=== PATIENT | male | born 2000 | race Caucasian/White ===

== ENCOUNTER 2024-09-02 15:18 | Emergency (ER) | payer MEDICAID, SELFPAY ==
[2024-09-02 16:02] VITALS: BP 144/88; PULSE 105; RESP 16; TEMP 37.5; O2SAT 98; BMI 38.4
--- NOTE | 2024-09-02 16:04 | ECG_ITS ---
Test Reason : CHEST PAIN Blood Pressure : / mmHG Vent. Rate : 098 BPM Atrial Rate : 098 BPM P-R Int : 146 ms QRS Dur : 098 ms QT Int : 336 ms P-R-T Axes : 022 016 016 degrees QTc Int : 428 ms Normal sinus rhythm Nonspecific T wave abnormality Abnormal ECG No previous ECGs available Referred By: Destiny Thomas Electronically Signed By:Raúl Holt
--- NOTE | 2024-09-02 16:06 | ED_ITS ---
HPI - Chest Pain General Chief Complaint: Chest Pain Stated Complaint: Chest pain/High blood pressure/Tachycardic Related Data Allergies Allergy/AdvReac Type Severity Reaction Status Date / Time No Known Allergies Allergy Verified 09/02/24 16:04 [facility] Social History Social History Advance Directives: No Advance Directives Information Provided: No Do you have a plan to hurt others: No Plan Physical Exam 2 Vital Signs: Vital Signs: Last Vital Signs Temp 99.5 F 09/02/24 16:02 Pulse 105 H 09/02/24 16:02 Resp 16 09/02/24 16:02 BP 144/88 H 09/02/24 16:02 Pulse Ox 98 09/02/24 16:02 O2 Del Method Room Air 09/02/24 16:02 BMI result Body Mass Index 38.4 Course Course Course Narrative: This is a rapid medical exam performed by Destiny Thomas PA-C. The patient is a 23-year-old male, with prior history of polysubstance abuse, alcohol abuse who presents from respite with chest pain. We will be screening basic labs troponin EKG and chest x-ray. The patient is hemodynamically stable, he is able to return to the waiting room pending his full medical assessment. Medical Decision Making Lab Data 09/02/24 16:32 09/02/24 16:32 Labs: Lab Results 09/02/24 Range/Units 16:32 WBC 10.1 (4.8-10.8) X10*3/uL RBC 5.58 (4.60-5.80) X10*6/uL Hgb 14.0 (14.0-18.0) g/dl Hct 44.4 (42.0-52.0) % MCV 79.6 L (80.0-98.0) fL MCH 25.1 L (27.0-33.0) pg MCHC 31.5 (31.0-36.0) g/dl RDW 13.2 (11.0-16.0) % Plt Count 360 (160-400) X10*3/uL MPV 8.3 L (9.4-12.4) fL Immature Gran % (Auto) 0.3 (0.0-0.4) % Neut % (Auto) 60.8 (45-73) % Lymph % (Auto) 27.7 (20-40) % [place] % (Auto) 8.4 (2-11) % Eos % (Auto) 2.5 (0-4) % Baso % (Auto) 0.3 (0-2) % Lymph # (Auto) 2.8 (1.2-4.9) X10*3/uL [place] # (Auto) 0.9 (0.1-1.2) X10*3/uL Eos # (Auto) 0.3 (0.0-0.4) X10*3/uL Baso # (Auto) 0.0 (0.0-0.2) X10*3/uL Abs Immat Gran (auto) 0.03 (0.00-0.03) X10*3/uL Absolute Neuts (auto) 6.2 (2.0-8.3) x10*3/uL Absolute Nucleated RBC 0.000 (0.0-0.012) X10*3/uL Nucleated RBC % (auto) 0.0 (0.0-0.2) /100WBC Sodium 139 (135-145) mmol/L Potassium 3.9 (3.3-5.1) mmol/L Chloride 108 (96-108) mmol/L Carbon Dioxide 24 (22-29) mmol/L Anion Gap 11 L (12-20) BUN 11 (9-16) mg/dL Creatinine 0.72 (0.5-1.4) mg/dL Estim Creat Clear Calc 203.9 Estimated GFR > 60 Random Glucose 131 H (60-115) mg/dL Calcium 9.3 (8.4-10.2) mg/dL Magnesium 2.2 (1.6-2.6) mg/dL Total Bilirubin 0.2 (0.0-1.0) mg/dL AST 27 (5-37) U/L ALT 67 H (0-40) U/L Alkaline Phosphatase 125 H (39-117) U/L Troponin I High Sens < 2.7 (<3.5-35.0) ng/L Total Protein 7.0 (6.5-8.0) g/dL Albumin 4.1 (3.5-5.0) g/dL Influenza Type A (PCR) NEGATIVE (Negative) Influenza Type B (PCR) NEGATIVE (Negative) RSV RNA Qual (PCR) NEGATIVE (Negative) SARS-CoV-2 RNA (RT-PCR) NEGATIVE (Negative) Discharge Plan Discharge Clinical Impression: Chest pain Patient Disposition: Left W/O Completing Treatment Discharge Date/Time: 09/02/24 19:46
[2024-09-02 16:36] LABS: MANUAL DIFF FLAG NO
[2024-09-02 16:42] LABS: Basophils Percent Auto 0.3 % (0-2); Eosinophils Absolute Auto 0.3 X10*3/uL (0.0-0.4); Eosinophils Percent Auto 2.5 % (0-4); Hematocrit 44.4 % (42.0-52.0); Imm Gran Abs Auto 0.03 X10*3/uL (0.00-0.03); Imm Gran Pct Auto 0.3 % (0.0-0.4); Lymphocytes Absolute Auto 2.8 X10*3/uL (1.2-4.9); Lymphocytes Percent Auto 27.7 % (20-40); Mean Corpuscular HGB Conc 31.5 g/dl (31.0-36.0); Mean Corpuscular Hemoglobin 25.1 pg (27.0-33.0); Mean Corpuscular Volume 79.6 fL (80.0-98.0); Mean Platelet Volume 8.3 fL (9.4-12.4); Monocytes Absolute Auto 0.9 X10*3/uL (0.1-1.2); Monocytes Percent Auto 8.4 % (2-11); Neutrophils Absolute Auto 6.2 x10*3/uL (2.0-8.3); Neutrophils Percent Auto 60.8 % (45-73); Platelet Count 360 X10*3/uL (160-400); Red Blood Count 5.58 X10*6/uL (4.60-5.80); Red Cell Distribution Width 13.2 % (11.0-16.0); White Blood Count 10.1 X10*3/uL (4.8-10.8)
[2024-09-02 17:17] LABS: Influenza A PCR NEGATIVE (Negative); Influenza B PCR NEGATIVE (Negative); Resp Syncy Virus RNA Qual PCR NEGATIVE (Negative); SARS COV2 PCR INHOUSE NEGATIVE (Negative)
[2024-09-02 17:27] LABS: Troponin-I High Sensitivity < 2.7 ng/L (<3.5-35.0)
[2024-09-02 18:04] LABS: Alanine Aminotransferase 67 U/L (0-40); Albumin Level 4.1 g/dL (3.5-5.0); Alkaline Phosphatase 125 U/L (39-117); Anion Gap 11 (12-20); Aspartate Amino Transferase 27 U/L (5-37); Bilirubin Total 0.2 mg/dL (0.0-1.0); Blood Urea Nitrogen 11 mg/dL (9-16); Calcium 9.3 mg/dL (8.4-10.2); Carbon Dioxide 24 mmol/L (22-29); Chloride 108 mmol/L (96-108); Creatinine Clr Calc Pharmacy 203.9; Estimated Glomerular Filt Rate > 60; Glucose Random 131 mg/dL (60-115); Magnesium 2.2 mg/dL (1.6-2.6); Potassium 3.9 mmol/L (3.3-5.1); Sodium 139 mmol/L (135-145)
== END 2024-09-02 19:46 | disposition left against medical advice (07) ==
LOC: HO.ED 19:44
PROVIDERS: Physician Assistant Medical; Emergency Provider Emergency Medicine Emergency Medical Services
DX: R07.89 Other chest pain (principal); R00.0 Tachycardia, unspecified; R03.0 Elevated blood-pressure reading, without diagnosis of hypertension; Z03.818 Encounter for observation for suspected exposure to other biological agents ruled out
CPT/HCPCS: 0241U; 36415; 80053; 83735; 84484; 85025; 93005; 99283

== ENCOUNTER → 2024-09-02 16:04 | Outpatient (BNV) | payer MEDICAID, SELFPAY | PROVIDERS: Emergency Provider Emergency Medicine Emergency Medical Services; Visit Provider Internal Medicine Cardiovascular Disease | DX: R94.31 Abnormal electrocardiogram [ECG] [EKG] (principal) | CPT/HCPCS: 93010 ==

== ENCOUNTER 2025-03-23 11:22 | Emergency (ER) | payer OTHER, SELFPAY ==
--- NOTE | ~2025-03-23 | US_ITS ---
EXAMINATION: US ABDOMEN LIMITED HISTORY: epigastric pain/ RUQ pain TECHNIQUE: Real-time grayscale ultrasound imaging of the right upper quadrant was performed and images were reviewed. COMPARISON: There are no prior studies available for comparison. FINDINGS: Liver: The liver is normal in size. The liver demonstrates mildly increased echotexture, consistent with steatosis. No focal mass or intrahepatic biliary ductal dilatation is identified. There is normal hepatopedal flow in the portal vein. Gallbladder and biliary tree: There are numerous shadowing calculi in the gallbladder. There is mild gallbladder wall thickening. There is no pericholecystic fluid. There is no sonographic Siu sign. The common bile duct is normal in caliber measuring 3 mm. Right Kidney: The right kidney measures 10.2 cm in length. The right kidney is unremarkable, without evidence of masses, hydronephrosis, or calculi. Pancreas: The pancreatic head, neck, and body are unremarkable. The pancreatic tail is obscured by bowel gas. Abdominal aorta and inferior vena cava: The visualized portions of the abdominal aorta and inferior vena cava are normal in caliber. There is no free fluid in the right upper quadrant. US/US abdomen limited IMPRESSION: 1. Cholelithiasis without evidence of acute cholecystitis. 2. Hepatic steatosis. Electronically signed by: William Oviedo MD 03/23/2025 01:05 PM EDT
[2025-03-23 11:41] VITALS: BP 142/76; PULSE 90; RESP 16; TEMP 36.5; O2SAT 98; BMI 37.7
--- NOTE | 2025-03-23 11:42 | ED.ABDPAIN ---
HPI - Abdominal Pain General Chief Complaint: Abdominal Pain Stated Complaint: Abd pain Time Seen by Provider: 03/23/25 14:59 Source: patient Mode of arrival: ambulatory Limitations: no limitations History of Present Illness ED Provider: Alvarado Hernandez HPI narrative: 24 yold male presents to the ED for RUQ pain since yesterday radiating to the back after eating. patient denies any diarrhea, lower abdominal pain, genitourinary symptoms, fever, or chills. Related Data Previous Rx's ?Medication ?Instructions ?Recorded ketorolac 10 mg tablet 10 mg PO Q6H PRN pain #20 tabs 03/23/25 oxycodone 5 mg capsule 5 mg PO TID PRN pain #9 caps 03/23/25 Allergies Allergy/AdvReac Type Severity Reaction Status Date / Time No Known Allergies Allergy Verified 03/23/25 11:44 Review of Systems Review of Systems RUQ abdominal pain Yes all other systems are reviewed and are negative PMFSH Past Medical History Medical History (Updated 03/23/25 @ 17:04 by ETHEL Arguelles) Anxiety Social History Social History Smoked in Last 30 Days: Yes Use of substances other than those prescribed or required for medical reasons: No Advance Directives: No Advance Directives Information Provided: No Physical Exam ED Vital Signs: Vital Signs - 24 hr 03/23/25 11:41 03/23/25 16:19 03/23/25 17:21 Temperature 97.7 F 98.0 F 98.2 F Pulse Rate 90 82 89 Respiratory Rate 16 16 16 Blood Pressure 142/76 H 144/72 H 138/78 Pulse Oximetry 98 98 98 Oxygen Delivery Method Room Air Room Air Room Air BMI result Body Mass Index 37.7 Const General: cooperative, healthy appearing, comfortable, no acute distress, well developed, alert, awake and Physically active Orientation/consciousness: patient oriented x3 HENMT Head: Yes normal to inspection, Yes No palpable skull fracture present, Yes normocephalic and Yes atraumatic Eyes General: appearance normal, both eyes and all related structures Neck Neck: Yes normal visual inspection, Yes full ROM, Yes no lymphadenopathy, Yes no meningeal signs, Yes trachea midline and Yes supple Chest Chest palpation & inspection: normal inspection of the chest and normal palpation of entire chest wall Resp Effort & Inspection: normal respiratory effort and able to speak in complete sentences Auscultation: clear to auscultation bilaterally Cardio Jugular venous distension: no JVD Heart sounds: S1 normal heart sound present and S2 normal heart sound present GI Inspection: Yes normal to inspection Palpation (GI): Soft to palpation, not firm, Tenderness to palpation present (GI) in the RUQ; not in the epigastrum, not in the LLQ, not in the RLQ, not in the LUQ, not at McBurney's point, not periumbilically, not suprapubicly, Siu's sign negative, obturator sign negative, psoas sign negative, with no rebound tenderness and Rovsing's sign negative, no guarding and not rigid General: Yes no CVA tenderness Back/Spine/Pelvis Back: no CVA tenderness and No back tenderness Skin General skin exam: no rashes or lesions noted, elasticity normal and turgor normal Neuro General: patient oriented x3, gait normal, tone normal, moves all extremities, Normal light touch and pain sensation, no meningeal signs, no focal motor deficits, CN's II-XI intact bilaterally and normal sensation to monofilament Extrem General: Yes normal to inspection, Yes full ROM and Yes capillary refill normal Psych Appearance: grossly normal, well kempt and not disheveled Course Course Course Narrative: This is an RME: Additional HPI, ROS, PE not included below will be deferred to primary provider. RME assessment and note performed by: Odalis Dumont PA-C This is a [id number]-uph-male who presents to the ER with complaints of epigastric pain/RUQ pain since last night. Reporting symptoms started at 7PM last night. Pain worsens with laying down. No hx of similar. +nausea. Patient with tenderness palpation in the epigastric and RUQ pain. Plan: Labs, US, UA Medical Decision Making Medical Decision Making MDM Narrative: 24-year-old male sensory ED for right upper quadrant pain. Ultrasound shows cholelithiasis without cholecystitis. Liver enzymes normal. White count only 12,000. Patient's pain improved with Toradol. Patient will be discharged with pain medication and informed to follow-up with outpatient surgery for further evaluation. Patient explained worrisome signs and informed to return to the ED immediately. Not suspecting sepsis, peritoneal abscess, perforation, cancer, or any other life-threatening etiology. Patient informed to follow-up with outpatient surgery Differential Diagnosis Differential Diagnoses: The differential diagnosis associated with the presentation includes (Pancreatitis, cholecystitis, muscle strain,) Admission/Observation Consideration of admission/observation: Escalation of care including admission/observation considered Lab Data MDM Lab Attestation statement: I reviewed the patient's lab results. 03/23/25 12:10 03/23/25 12:10 Labs: Lab Results 03/23/25 03/23/25 Range/Units 12:10 15:07 WBC 11.2 H (4.8-10.8) X10*3/uL RBC 5.64 (4.60-5.80) X10*6/uL Hgb 14.3 (14.0-18.0) g/dl Hct 44.7 (42.0-52.0) % MCV 79.3 L (80.0-98.0) fL MCH 25.4 L (27.0-33.0) pg MCHC 32.0 (31.0-36.0) g/dl RDW 14.5 (11.0-16.0) % Plt Count 329 (160-400) X10*3/uL MPV 8.6 L (9.4-12.4) fL Immature Gran % (Auto) 0.4 (0.0-0.4) % Neut % (Auto) 71.5 (45-73) % Lymph % (Auto) 17.7 L (20-40) % [place] % (Auto) 8.8 (2-11) % Eos % (Auto) 1.4 (0-4) % Baso % (Auto) 0.2 (0-2) % Lymph # (Auto) 2.0 (1.2-4.9) X10*3/uL [place] # (Auto) 1.0 (0.1-1.2) X10*3/uL Eos # (Auto) 0.2 (0.0-0.4) X10*3/uL Baso # (Auto) 0.0 (0.0-0.2) X10*3/uL Abs Immat Gran (auto) 0.04 H (0.00-0.03) X10*3/uL Absolute Neuts (auto) 8.0 (2.0-8.3) x10*3/uL Absolute Nucleated RBC 0.000 (0.0-0.012) X10*3/uL Nucleated RBC % (auto) 0.0 (0.0-0.2) /100WBC Sodium 144 (135-145) mmol/L Potassium 3.7 (3.3-5.1) mmol/L Chloride 112 H (96-108) mmol/L Carbon Dioxide 24 (22-29) mmol/L Anion Gap 12 (12-20) BUN 12 (9-16) mg/dL Creatinine 0.64 (0.5-1.4) mg/dL Estim Creat Clear Calc 225.4 Estimated GFR > 60 Random Glucose 96 (60-115) mg/dL Calcium 9.1 (8.4-10.2) mg/dL Magnesium 2.1 (1.6-2.6) mg/dL Total Bilirubin 0.4 (0.0-1.0) mg/dL Direct Bilirubin 0.1 (0.0-0.5) mg/dL AST 21 (5-37) U/L ALT 39 (0-40) U/L Alkaline Phosphatase 104 (39-117) U/L Troponin I High Sens < 2.7 (<3.5-35.0) ng/L Total Protein 7.0 (6.5-8.0) g/dL Albumin 4.4 (3.5-5.0) g/dL Lipase 20 (8-78) U/L Urine Color Yellow Urine Appearance Cloudy Urine pH 5.5 (5.0-9.0) Ur Specific [place] >= 1.030 H (1.005-1.025) Urine Protein Trace (Neg-Trace) mg/dL Urine Glucose (UA) Negative (Negative) mg/dL Urine Ketones Trace (Negative) mg/dL Urine Blood Negative (Negative) Urine Nitrite Negative (Negative) Ur Leukocyte Esterase Negative (Negative) Independent Interpretation I performed an independent interpretation of an: Ultrasound Radiology Impression Discussion of test interpretation with radiology: I have reviewed the radiologist's reading. Independent Historian Clinical information obtained from an independent historian. History obtained from or confirmed by: Other (patient) Prescription Management I considered prescription management with: Pain Medication Medications Administered Discontinued Medications Generic Name Dose Route Start Last Admin Trade Name Freq PRN Reason Stop Dose Admin Ketorolac Tromethamine 30 mg 03/23/25 16:21 03/23/25 16:50 Ketorolac Tromethamine 30 Mg/Ml Vial IM 03/23/25 16:22 30 mg ONCE ONE Administration Discharge Plan Discharge Clinical Impression: Gallstones Patient Disposition: Home, Self-Care Instructions: Gallstones (ED) Additional Instructions: You will need follow-up with outpatient surgery. Return to the ED immediately for any worsening abdominal pain, nausea, vomiting, fever, chills, inability tolerate solid food/liquids, or any other concerning symptoms. Recommend avoiding fatty and fried food. Prescriptions: New ketorolac 10 mg tablet 10 mg PO Q6H PRN (Reason: pain) Qty: 20 0RF Rx Instructions: Patient received 30mg IM Ketorolac in the ED. oxycodone 5 mg capsule 5 mg PO TID PRN (Reason: pain) Qty: 9 0RF Rx Instructions: Partial Fill upon patient request. Referrals: [facility] [place] [facility] [Provider Group, General Surgery] - 2 days Referral Note: Cholelithiasis without cholecystitis Clinical Impression: Gallstones Stand Alone Forms: Work/School Release Interventions: ED Discharge Assessment Last Done: 03/23/25 17:21 Discharge Date/Time: 03/23/25 17:22 Print Language: Cuban
--- NOTE | 2025-03-23 11:44 | ECG_ITS ---
Test Reason : epgastric pain Blood Pressure : */* mmHG Vent. Rate : 82 BPM Atrial Rate : 82 BPM P-R Int : 156 ms QRS Dur : 96 ms QT Int : 348 ms P-R-T Axes : 23 15 20 degrees QTcB Int : 406 ms Sinus rhythm with marked sinus arrhythmia Otherwise normal ECG When compared with ECG of 02-Sep-2024 15:24, No significant change was found Referred By: Odalis Dumont Electronically Signed By: NOHEMI GIRON
[2025-03-23 12:14] LABS: MANUAL DIFF FLAG NO
[2025-03-23 12:15] LABS: Basophils Percent Auto 0.2 % (0-2); Eosinophils Absolute Auto 0.2 X10*3/uL (0.0-0.4); Eosinophils Percent Auto 1.4 % (0-4); Hematocrit 44.7 % (42.0-52.0); Hemoglobin 14.3 g/dl (14.0-18.0); Imm Gran Abs Auto 0.04 X10*3/uL (0.00-0.03); Imm Gran Pct Auto 0.4 % (0.0-0.4); Lymphocytes Percent Auto 17.7 % (20-40); Mean Corpuscular Hemoglobin 25.4 pg (27.0-33.0); Mean Corpuscular Volume 79.3 fL (80.0-98.0); Mean Platelet Volume 8.6 fL (9.4-12.4); Monocytes Percent Auto 8.8 % (2-11); Neutrophils Percent Auto 71.5 % (45-73); Platelet Count 329 X10*3/uL (160-400); Red Blood Count 5.64 X10*6/uL (4.60-5.80); Red Cell Distribution Width 14.5 % (11.0-16.0); White Blood Count 11.2 X10*3/uL (4.8-10.8)
[2025-03-23 12:34] LABS: Alanine Aminotransferase 39 U/L (0-40); Albumin Level 4.4 g/dL (3.5-5.0); Alkaline Phosphatase 104 U/L (39-117); Anion Gap 12 (12-20); Aspartate Amino Transferase 21 U/L (5-37); Bilirubin Direct 0.1 mg/dL (0.0-0.5); Bilirubin Total 0.4 mg/dL (0.0-1.0); Blood Urea Nitrogen 12 mg/dL (9-16); Calcium 9.1 mg/dL (8.4-10.2); Carbon Dioxide 24 mmol/L (22-29); Chloride 112 mmol/L (96-108); Creatinine Clr Calc Pharmacy 225.4; Estimated Glomerular Filt Rate > 60; Glucose Random 96 mg/dL (60-115); Lipase 20 U/L (8-78); Magnesium 2.1 mg/dL (1.6-2.6); Potassium 3.7 mmol/L (3.3-5.1); Sodium 144 mmol/L (135-145)
[2025-03-23 12:42] LABS: Troponin-I High Sensitivity < 2.7 ng/L (<3.5-35.0)
[2025-03-23 15:14] LABS: Appearance Urine Cloudy; Color Urine Yellow; Glucose Urine UA Negative (Negative); Leukocyte Esterase Urine Negative (Negative); Nitrite Urine Negative (Negative); PH 5.5 (5.0-9.0); Specific Gravity - Urine >= 1.030 (1.005-1.025); Urine Blood Negative (Negative); Urine Ketones Trace mg/dL (Negative); Urine Protein Trace mg/dL (Neg-Trace)
[2025-03-23 16:19] VITALS: BP 144/72; PULSE 82; RESP 16; TEMP 36.7; O2SAT 98
[2025-03-23] MEDS: Ketorolac Tromethamine 30 MG/ML VIAL IM (16:50)
--- NOTE | 2025-03-23 17:20 | PC.NURSE ---
pt a&ox3, vss, pt medicated per order for 7/10 pain, pt to discharge home to follow up with surgery outpt.
[2025-03-23 17:21] VITALS: BP 138/78; PULSE 89; RESP 16; TEMP 36.8; O2SAT 98
== END 2025-03-23 17:22 | disposition home or self-care (01) ==
PROVIDERS: Physician Assistant Medical; Emergency Provider Emergency Medicine
DX: K80.20 Calculus of gallbladder without cholecystitis without obstruction (principal); I49.8 Other specified cardiac arrhythmias; R10.13 Epigastric pain; R10.11 Right upper quadrant pain; M54.50 Low back pain, unspecified
CPT/HCPCS: 36415; 76705; 80048; 80076; 81003; 83690; 83735; 84484; 85025; 93005; 96372; 99284; 99285; J1885

== ENCOUNTER → 2025-03-23 11:44 | Outpatient (BNV) | payer OTHER, SELFPAY | PROVIDERS: Emergency Provider Emergency Medicine; Visit Provider Internal Medicine | DX: R10.13 Epigastric pain (principal) | CPT/HCPCS: 93010 ==

== ENCOUNTER → 2025-03-23 11:44 | Outpatient (BNV) | payer MEDICAID, SELFPAY | PROVIDERS: Visit Provider Radiology Diagnostic Radiology | DX: K80.20 Calculus of gallbladder without cholecystitis without obstruction (principal); K76.0 Fatty (change of) liver, not elsewhere classified | CPT/HCPCS: 76705 ==

== ENCOUNTER 2025-03-28 17:49 | Inpatient (IN) | payer OTHER, SELFPAY ==
[2025-03-28] VITALS (14 sets, daily range): BP systolic 102–138; BP diastolic 46–78; PULSE 95–152; RESP 15–24; TEMP 36.7–40; O2SAT 93–96; BMI 37.7
--- NOTE | ~2025-03-28 | CT_ITS ---
CLINICAL HISTORY: abdominal pain, fever CT abdomen and pelvis with contrast Comparison: US - US ABDOMEN LIMITED - 03/28/25 18:42 EDT Findings: No consolidation or effusion. The gallstones seen on ultrasound are not clearly visualized on CT. No inflammatory changes adjacent to the gallbladder. No biliary ductal dilatation. The liver, spleen and pancreas are unremarkable. A 2.9 cm x 2.4 cm low-attenuation left adrenal lesion suggestive of an adenoma. Right adrenal is unremarkable. Enhancement of bilateral kidneys with no stones along course of the ureters and no hydronephrosis or hydroureter. No perinephric stranding. No bowel obstruction, pneumoperitoneum, or pneumatosis. No free fluid or loculated fluid collection. Slight hazy increased attenuation in bowel mesentery is likely artifactual. Pelvic contents unremarkable. Normal appendix. Abdominal aorta normal in size. Bilateral small fat containing inguinal hernias. No acute fracture. IMPRESSION: No acute findings. This document has been electronically signed by: Maliha Marshall MD on 03/28/2025 21:28:24
--- NOTE | ~2025-03-28 | XR_ITS ---
CLINICAL HISTORY: cough, fever 1 view chest x-ray Comparison: None provided Findings: Normal size heart. Somewhat low lung volumes. No consolidation, significant pleural effusion, or pneumothorax. No acute fracture. IMPRESSION: 1. No acute findings. This document has been electronically signed by: Maliha Marshall MD on 03/28/2025 19:38:37
--- NOTE | ~2025-03-28 | US_ITS ---
CLINICAL HISTORY: RUQ pain, known stones US abdomen limited Comparison: US/SR - US ABDOMEN LIMITED - 03/23/25 12:37 EDT Findings: Examination limited by patient's body habitus. The pancreas, IVC and aorta not visualized. Liver not imaged. The common duct is 5-6 mm in diameter. Echogenic foci in the gallbladder consistent with cholelithiasis. There is no sonographic Siu sign. Gallbladder wall measures 4 mm slightly thickened similar to previous examination. No pericholecystic fluid. IMPRESSION: 1. Cholelithiasis with gallbladder wall slightly thickened measuring 4 mm. This appears stable. Common bile duct within normal limits. This document has been electronically signed by: Maliha Marshall MD on 03/28/2025 19:27:34
--- NOTE | 2025-03-28 18:11 | ED_ITS ---
HPI - Abdominal Pain General Chief Complaint: Abdominal Pain Stated Complaint: here 3days ago/gallstones/fever feels dizzy Time Seen by Provider: 03/28/25 18:10 Source: patient, RN notes reviewed and old records reviewed Mode of arrival: ambulatory Limitations: no limitations History of Present Illness ED Provider: [place] HPI narrative: 24-year-old male presents for evaluation of abdominal pain, fevers. He was seen here 5 days ago for right upper quadrant abdominal pain that radiates to his back He had an ultrasound that showed cholelithiasis without evidence of acute cholecystitis and was ultimately discharged home The patient reports that his pain never resolved and he developed fevers last night He reports feeling unwell with fevers, body aches, chills, headaches, abdominal pain and nausea. He also has a dry cough Related Data Previous Rx's ?Medication ?Instructions ?Recorded ketorolac 10 mg tablet 10 mg PO Q6H PRN pain #20 ta bs 03/23/25 oxycodone 5 mg capsule 5 mg PO TID PRN pain #9 caps 03/23/25 Allergies Allergy/AdvReac Type Severity Reaction Status Date / Time No Known Allergies Allergy Verified 03/28/25 18:03 Review of Systems Constitutional: Reports body ache(s), Reports chills, Reports fever(s) and Reports headache(s) Denies vertigo, Denies dizziness and Reports headache(s) Cardiovascular: Denies chest pain, Denies dyspnea and Denies dyspnea on exertion Respiratory: Reports cough, Denies dyspnea and Denies dyspnea on exertion Gastrointestinal: Reports abdominal pain, Denies diarrhea, Reports nausea and Reports vomiting Musculoskeletal: Denies back pain Skin/Breast: Denies rash Denies vertigo, Denies dizziness and Reports headache(s) Psychiatric: Denies anxiety [facility] Past Medical History Medical History (Updated 03/28/25 @ 21:44 by Wilber Quintanilla) Anxiety Social History Social History Smoked in Last 30 Days: Yes Use of substances other than those prescribed or required for medical reasons: No Advance Directives: No Advance Directives Information Provided: No Physical Exam ED Vital Signs: Vital Signs - 24 hr 03/28/25 18:01 03/28/25 18:32 03/28/25 18:32 Temperature 104 F H Pulse Rate 151 H 145 H Pulse Rate [Monitor] Respiratory Rate 20 22 H Blood Pressure 113/61 114/48 L Pulse Oximetry 94 93 95 Oxygen Delivery Method Room Air Room Air Nasal Cannula Oxygen Flow Rate 2 03/28/25 18:37 03/28/25 18:41 03/28/25 19:04 Temperature 102.6 F H Pulse Rate 138 H Pulse Rate [Monitor] 152 H Respiratory Rate 24 H 20 Blood Pressure 102/53 L Pulse Oximetry 95 Oxygen Delivery Method Nasal Cannula Oxygen Flow Rate 2 03/28/25 19:21 03/28/25 19:23 03/28/25 19:51 Temperature 98.9 F 98.9 F 98.3 F Pulse Rate 120 H 109 H Pulse Rate [Monitor] Respiratory Rate 15 22 H Blood Pressure 113/46 L 118/61 Pulse Oximetry 96 Oxygen Delivery Method Nasal Cannula Oxygen Flow Rate 2 03/28/25 20:05 03/28/25 20:15 03/28/25 20:49 Temperature 98.6 F 98.9 F 98.2 F Pulse Rate 120 H 117 H 122 H Pulse Rate [Monitor] Respiratory Rate 24 H 20 21 H Blood Pressure 117/55 L 109/53 L 126/65 Pulse Oximetry 94 94 95 Oxygen Delivery Method Room Air Room Air Room Air Oxygen Flow Rate BMI result Body Mass Index 37.7 Const General: comfortable, alert and awake Nutritional Appearance: well nourished Orientation/consciousness: patient oriented x3 HENMT Head: Yes normocephalic and Yes atraumatic Eyes Eyelids: Yes eyelids normal Conjunctivae: conjunctivae normal Sclerae: sclerae normal Corneas: corneas normal Pupils: Equal, round and reactive pupils present EOM: EOMs intact bilaterally Neck Neck: Yes full ROM Resp Other: Breath sounds diminished but otherwise clear to auscultation Effort & Inspection: normal respiratory effort, able to speak in complete sentences and not labored Cardio Rhythm: regular rhythm GI Inspection: No distended Palpation (GI): Soft to palpation, not firm, Tenderness to palpation present (GI) in the epigastrum and in the RUQ; not in the LLQ, not in the RLQ and not in the LUQ, Guarding due to palpation present (GI) and not rigid Skin General skin exam: elasticity normal Neuro General: patient oriented x3 Cranial nerves: Yes Equal, round and reactive pupils present and Yes Bilaterally intact EOM present Cognition (Neuro): normal cognition Extrem Other: Moving all extremities well without any obvious deformities Course Course Course Narrative: Lulu Izaguirre JORI This is a rapid medical exam. Deferred additional HPI, ROS, PE to primary provider. 24 yo male with history of gallstones diagnosed here 03/23 here with complaints of worsening epigastric pain, dizziness, malaise. Noted to be tachycardic and febrile in triage. Brought direct to room. Ordered labs including blood cultures, lactic acid, UA, IVF and antibiotics. Reevaluation(s) Reevaluation #1: Sepsis alert was called due to patient's presentation, abdominal pain a fever of 104 orally and tachycardia to 144. He was given 3 L of normal saline. Given his obesity, ideal body weight of 71 kg was used for fluid bolus calculations which would be 2100 cc and the patient received more than this. He was given broad-spectrum antibiotics with Zosyn. Sepsis focused exam performed Time: 18:30 Medical Decision Making Medical Decision Making MDM Narrative: 24-year-old male presents for evaluation of right upper quadrant abdominal pain and fever. He meets sepsis criteria with fever, tachycardia and suspected infection of cholecystitis due to his recent gallstones and right upper quadrant abdominal pain with nausea. The patient does have a cough in his oxygen saturation is 93% with no known respiratory disease, he does use a vape but does not smoke tobacco we will get a chest x-ray to evaluate for possible pneumonia. Differential Diagnosis Differential Diagnoses: The differential diagnosis associated with the presentation includes Upper respiratory infection Bronchitis Pneumonia Cholecystitis Sepsis Bacteremia Admission/Observation Consideration of admission/observation: Escalation of care including admission/observation considered Consult Healthcare Provider Management of the patient was discussed with: [employer] (Patient seen by Dr Menjivar who will admit the patient) Lab Data [facility] Lab Attestation statement: I reviewed the patient's lab results. Mild leukocytosis, no significant anemia. Mild hypokalemia, likely due to decreased appetite. Patient's CO2 is low likelihood tachypnea from the fever and sepsis. Likely primary metabolic acidosis. Mild elevation of LFTs 03/28/25 18:19 03/28/25 19:50 Labs: Lab Results 03/28/25 03/28/25 03/28/25 Range/Units 18:19 18:20 19:50 WBC 11.8 H (4.8-10.8) X10*3/uL RBC 5.58 (4.60-5.80) X10*6/uL Hgb 14.1 (14.0-18.0) g/dl Hct 43.0 (42.0-52.0) % MCV 77.1 L (80.0-98.0) fL MCH 25.3 L (27.0-33.0) pg MCHC 32.8 (31.0-36.0) g/dl RDW 14.2 (11.0-16.0) % Plt Count 291 (160-400) X10*3/uL MPV 9.4 (9.4-12.4) fL Immature Gran % (Auto) 0.3 (0.0-0.4) % Neut % (Auto) 78.9 H (45-73) % Lymph % (Auto) 10.8 L (20-40) % [place] % (Auto) 9.1 (2-11) % Eos % (Auto) 0.7 (0-4) % Baso % (Auto) 0.2 (0-2) % Lymph # (Auto) 1.3 (1.2-4.9) X10*3/uL [place] # (Auto) 1.1 (0.1-1.2) X10*3/uL Eos # (Auto) 0.1 (0.0-0.4) X10*3/uL Baso # (Auto) 0.0 (0.0-0.2) X10*3/uL Abs Immat Gran (auto) 0.03 (0.00-0.03) X10*3/uL Absolute Neuts (auto) 9.3 H (2.0-8.3) x10*3/uL Absolute Nucleated RBC 0.000 (0.0-0.012) X10*3/uL Nucleated RBC % (auto) 0.0 (0.0-0.2) /100WBC Sodium 140 (135-145) mmol/L Potassium 3.1 L (3.3-5.1) mmol/L Chloride 113 H (96-108) mmol/L Carbon Dioxide 19 L (22-29) mmol/L Anion Gap 11 L (12-20) BUN 18 H (9-16) mg/dL Creatinine 0.67 (0.5-1.4) mg/dL Estim Creat Clear Calc 215.2 Estimated GFR > 60 Random Glucose 92 (60-115) mg/dL Lactic Acid 1.0 (0.5-2.0) mmol/L Calcium 7.2 L D (8.4-10.2) mg/dL Total Bilirubin 0.6 (0.0-1.0) mg/dL Direct Bilirubin 0.3 (0.0-0.5) mg/dL AST 39 H (5-37) U/L ALT 68 H (0-40) U/L Alkaline Phosphatase 88 (39-117) U/L Total Protein 5.5 L (6.5-8.0) g/dL Albumin 3.4 L (3.5-5.0) g/dL Lipase 16 (8-78) U/L Urine Color Urine Appearance Urine pH (5.0-9.0) Ur Specific [place] (1.005-1.025) Urine Protein (Neg-Trace) mg/dL Urine Glucose (UA) (Negative) mg/dL Urine Ketones (Negative) mg/dL Urine Blood (Negative) Urine Nitrite (Negative) Ur Leukocyte Esterase (Negative) 03/28/25 Range/Units 20:05 WBC (4.8-10.8) X10*3/uL RBC (4.60-5.80) X10*6/uL Hgb (14.0-18.0) g/dl Hct (42.0-52.0) % MCV (80.0-98.0) fL MCH (27.0-33.0) pg MCHC (31.0-36.0) g/dl RDW (11.0-16.0) % Plt Count (160-400) X10*3/uL MPV (9.4-12.4) fL Immature Gran % (Auto) (0.0-0.4) % Neut % (Auto) (45-73) % Lymph % (Auto) (20-40) % [place] % (Auto) (2-11) % Eos % (Auto) (0-4) % Baso % (Auto) (0-2) % Lymph # (Auto) (1.2-4.9) X10*3/uL [place] # (Auto) (0.1-1.2) X10*3/uL Eos # (Auto) (0.0-0.4) X10*3/uL Baso # (Auto) (0.0-0.2) X10*3/uL Abs Immat Gran (auto) (0.00-0.03) X10*3/uL Absolute Neuts (auto) (2.0-8.3) x10*3/uL Absolute Nucleated RBC (0.0-0.012) X10*3/uL Nucleated RBC % (auto) (0.0-0.2) /100WBC Sodium (135-145) mmol/L Potassium (3.3-5.1) mmol/L Chloride (96-108) mmol/L Carbon Dioxide (22-29) mmol/L Anion Gap (12-20) BUN (9-16) mg/dL Creatinine (0.5-1.4) mg/dL Estim Creat Clear Calc Estimated GFR Random Glucose (60-115) mg/dL Lactic Acid (0.5-2.0) mmol/L Calcium (8.4-10.2) mg/dL Total Bilirubin (0.0-1.0) mg/dL Direct Bilirubin (0.0-0.5) mg/dL AST (5-37) U/L ALT (0-40) U/L Alkaline Phosphatase (39-117) U/L Total Protein (6.5-8.0) g/dL Albumin (3.5-5.0) g/dL Lipase (8-78) U/L Urine Color Yellow Urine Appearance Clear Urine pH 6.0 (5.0-9.0) Ur Specific [place] 1.025 (1.005-1.025) Urine Protein Negative (Neg-Trace) mg/dL Urine Glucose (UA) Negative (Negative) mg/dL Urine Ketones Trace (Negative) mg/dL Urine Blood Negative (Negative) Urine Nitrite Negative (Negative) Ur Leukocyte Esterase Negative (Negative) Medications Administered Discontinued Medications Generic Name Dose Route Start Last Admin Trade Name Freq PRN Reason Stop Dose Admin Sodium Chloride 1,000 mls @ 999 mls/hr 03/28/25 18:04 03/28/25 20:03 Ns IV 03/28/25 19:04 Infused .Q1H1M STA Infusion Piperacillin Sod/Tazobactam 50 mls @ 100 mls/hr 03/28/25 18:04 03/28/25 18:42 Sod 3.375 gm/ Sodium Chloride IV 03/28/25 18:33 Infused ONCE ONE Infusion Acetaminophen 1,000 mg in 100 mls @ 400 mls/hr 03/28/25 18:18 03/28/25 18:42 Ofirmev IV 03/28/25 18:32 Infused ONCE ONE Infusion Sodium Chloride 1,000 mls @ 999 mls/hr 03/28/25 18:30 03/28/25 20:03 Ns IV 03/28/25 20:30 Infused .Q1H1M MADDY Infusion Iohexol 100 ml 03/28/25 20:25 03/28/25 20:25 Iohexol 350 Mg/Ml 100 Ml Infus..Btl IV 03/28/25 20:26 85 ml ONCE ONE Administration Morphine Sulfate 4 mg 03/28/25 18:34 03/28/25 18:37 Morphine Sulfate 4 Mg/Ml Cartridge IVPUSH 03/28/25 18:35 4 mg ONCE ONE Administration Protocol Ondansetron HCl 4 mg 03/28/25 18:34 03/28/25 18:37 Ondansetron Hcl 4 Mg/2 Ml Vial IVPUSH 03/28/25 18:35 4 mg ONCE ONE Administration Discharge Plan Discharge Clinical Impression: Biliary colic Patient Disposition: Admitted As Inpatient Print Language: Kyrgyz
[2025-03-28 18:27] LABS: MANUAL DIFF FLAG NO
--- NOTE | 2025-03-28 18:27 | ECG_ITS ---
Test Reason : TACHYCARDIA Blood Pressure : */* mmHG Vent. Rate : 142 BPM Atrial Rate : 142 BPM P-R Int : 144 ms QRS Dur : 92 ms QT Int : 262 ms P-R-T Axes : 25 17 23 degrees QTcB Int : 403 ms Sinus tachycardia Otherwise normal ECG When compared with ECG of 23-Mar-2025 12:03, Vent. rate has increased by 60 bpm Referred By: Wilber Quintanilla Electronically Signed By: NOHEMI GIRON
[2025-03-28 18:50] LABS: Hematocrit 43.0 % (42.0-52.0); Hemoglobin 14.1 g/dl (14.0-18.0); Imm Gran Abs Auto 0.03 X10*3/uL (0.00-0.03); Imm Gran Pct Auto 0.3 % (0.0-0.4); Lymphocytes Absolute Auto 1.3 X10*3/uL (1.2-4.9); Mean Corpuscular HGB Conc 32.8 g/dl (31.0-36.0); Mean Corpuscular Hemoglobin 25.3 pg (27.0-33.0); Mean Corpuscular Volume 77.1 fL (80.0-98.0); NRBC Abs Auto 0.000 X10*3/uL (0.0-0.012); NRBC Pct Auto 0.0 /100WBC (0.0-0.2); Platelet Count 291 X10*3/uL (160-400); Red Blood Count 5.58 X10*6/uL (4.60-5.80); White Blood Count 11.8 X10*3/uL (4.8-10.8)
--- NOTE | 2025-03-28 19:26 | PC.NURSE ---
Pt came from triage, sepsis alert started on arrival to ED7, pt has bilat IV placed, placed on monitor, all labs obtained, medications given and started. Pt in agreement with current plan, pt aunt also updated over the phone. At this time awaiting lab results, and imaging results to assess further planning. Pt placed on 2L NC dt O2 in the low 90s. Pt does say he smokes intermit on his tabacco vape, denies thc, or other drug use or ETOH. Pt has not had anything to eat or drink since last night.
--- NOTE | 2025-03-28 19:40 | PC.NURSE ---
assumed care for pt at this time. pt a&o x3 sitting up in bed talking on the phone. pt complaining of 10/10 pain. IVF noted to still be infusing. VS updated. pt pending ultrasound and chest xray results. pts needs met at this time. plan of care ongoing.
[2025-03-28 20:13] LABS: Alanine Aminotransferase 68 U/L (0-40); Albumin Level 3.4 g/dL (3.5-5.0); Alkaline Phosphatase 88 U/L (39-117); Anion Gap 11 (12-20); Aspartate Amino Transferase 39 U/L (5-37); Blood Urea Nitrogen 18 mg/dL (9-16); Calcium 7.2 mg/dL (8.4-10.2); Carbon Dioxide 19 mmol/L (22-29); Chloride 113 mmol/L (96-108); Creatinine Clr Calc Pharmacy 215.2; Estimated Glomerular Filt Rate > 60; Lipase 16 U/L (8-78); Potassium 3.1 mmol/L (3.3-5.1); Sodium 140 mmol/L (135-145); Total Protein 5.5 g/dL (6.5-8.0)
[2025-03-28 20:15] LABS: Appearance Urine Clear; Glucose Urine UA Negative (Negative); PH 6.0 (5.0-9.0); Specific Gravity - Urine 1.025 (1.005-1.025)
[2025-03-28] MEDS: iohexoL 350 MG/ML 100 ML INFUS..BTL IV (20:25)
--- NOTE | 2025-03-28 22:31 | PM.HPGS ---
History of Present Illness History of Present Illness Date of Service: 03/28/25 Chief complaint: abdominal pain Narrative: Adi Way is a 24 year old male who has been having abdominal pain nausea and vomiting for the last couple of days. He was here in the emergency room several days ago and had a workup which revealed gallstones at the time his white count was slightly elevated LFTs all were normal no fevers or chills. He was discharged with plan to follow up as an outpatient the surgery department. He comes in now complaining of worsening abdominal pain since yesterday and here his LFTs are little elevated he is tachycardic he had an initial temperature of 104 degrees. He met sepsis protocol and was treated with IV fluids resuscitation. He has improved since then. He is still complains of right upper quadrant pain but denies that is been associated with anything in regards to eating. It has been here and that is gotten worse. The medication in the ER has helped him. He has never had issues like this before. He does vape but he does not use any other drugs or alcohol. He denies any urinary symptoms any significant cough. Review of Systems Review of Systems: Yes all other systems are reviewed and are negative [facility] Past Medical History Medical History (Updated 03/28/25 @ 21:44 by Wilber Quintanilla) Anxiety Social History Social History Smoked in Last 30 Days: Yes Use of substances other than those prescribed or required for medical reasons: No Advance Directives: No Advance Directives Information Provided: No Meds Allergies Allergy/AdvReac Type Severity Reaction Status Date / Time No Known Allergies Allergy Verified 03/28/25 18:03 Active Medications: Current Medications Enoxaparin Sodium (Enoxaparin Sodium 40 Mg/0.4 Ml Syringe) 40 mg SUBCUT Q24H MADDY Piperacillin Sod/Tazobactam (Sod 3.375 gm/ Sodium Chloride) 50 mls @ 100 mls/hr IV Q6H MADDY Potassium Chloride/Sodium Chloride (Kcl 40 Meq In 0.9 % Sodium Chl) 40 meq in 1,000 mls @ 150 mls/hr IVCONT .Q6H40M MADDY Ketorolac Tromethamine (Ketorolac Tromethamine 30 Mg/Ml Vial) 30 mg IVPUSH RQ6H PRN PRN Reason: Pain, Moderate(Pain Scale 4-6) Morphine Sulfate (Morphine Sulfate 4 Mg/Ml Cartridge) 4 mg IVPUSH RQ4H PRN; Protocol PRN Reason: Pain, Severe (Pain Scale 7-10) Pantoprazole Sodium (Pantoprazole Sodium 40 Mg/10 Ml Vial) 40 mg IVPUSH DAILY [facility] Sodium Chloride (0.9 % Sodium Chloride Flush 3 Ml Syringe) 3 ml IVFLUSH QSHIFT MADDY Physical Exam Vital Signs: Vital Signs: Last Vital Signs Temp 98.1 F 03/28/25 22:19 Pulse 101 H 03/28/25 22:19 Resp 22 H 03/28/25 22:19 BP 138/64 03/28/25 22:19 Pulse Ox 95 03/28/25 22:19 O2 Del Method Room Air 03/28/25 22:19 O2 Flow Rate 2 03/28/25 19:51 BMI result Body Mass Index 37.7 Const: General: cooperative and acute distress mild Orientation/consciousness: oriented to person and patient oriented x3 Eyes: Other: Nonicteric Resp: Effort & Inspection: normal respiratory effort Auscultation: clear to auscultation bilaterally Cardio: Rate: regular rate Rhythm: regular rhythm GI: Other: Abdomen is soft nondistended tender in the epigastric and right upper quadrant area with mild guarding no rebound no peritoneal signs active bowel sounds no masses Skin: Other: Nonicteric Neuro: General: oriented to person and patient oriented x3 Psych: Appearance: grossly normal Mental Status: mental status grossly normal Speech and movement: Normal speech and movement present Affect: normal affect Attitude: cooperative Thought process: Normal thought process present Thought content: Normal thought content present Results Results Labs: Short CBC 03/28/25 Range/Units 18:19 WBC 11.8 H (4.8-10.8) X10*3/uL Hgb 14.1 (14.0-18.0) g/dl Hct 43.0 (42.0-52.0) % Plt Count 291 (160-400) X10*3/uL BMP 03/28/25 19:50 Sodium 140 Potassium 3.1 L Chloride 113 H Carbon Dioxide 19 L BUN 18 H Creatinine 0.67 Calcium 7.2 L D Liver Function 03/28/25 Range/Units 19:50 Total Bilirubin 0.6 (0.0-1.0) mg/dL Direct Bilirubin 0.3 (0.0-0.5) mg/dL AST 39 H (5-37) U/L ALT 68 H (0-40) U/L Alkaline Phosphatase 88 (39-117) U/L Albumin 3.4 L (3.5-5.0) g/dL Urine 03/28/25 Range/Units 20:05 Urine Color Yellow Urine Appearance Clear Urine pH 6.0 (5.0-9.0) Ur Specific [place] 1.025 (1.005-1.025) Urine Protein Negative (Neg-Trace) mg/dL Urine Glucose (UA) Negative (Negative) mg/dL Abdomen CT scan report/results: report reviewed and image reviewed CT scan - pelvis: report reviewed and image reviewed Additional studies: Patient: Adi Way MR#: [id number] : 2000 Acct:[id number] Age/Sex: 24 / M ADM Date: 03/28/25 Loc: HO.ED Attending Dr: Ordering Physician: Wilber Quintanilla Date of Service: 03/28/25 Procedure(s): CT abdomen pelvis w IV con Accession Number(s): [id number] cc: Wilber Quintanilla; Physician,None ~ Report Number: [id number]: Total DLP = 938.00 mGy-cm CLINICAL HISTORY: abdominal pain, fever CT abdomen and pelvis with contrast Comparison: US - US ABDOMEN LIMITED - 03/28/25 18:42 EDT Findings: No consolidation or effusion. The gallstones seen on ultrasound are not clearly visualized on CT. No inflammatory changes adjacent to the gallbladder. No biliary ductal dilatation. The liver, spleen and pancreas are unremarkable. A 2.9 cm x 2.4 cm low-attenuation left adrenal lesion suggestive of an adenoma. Right adrenal is unremarkable. Enhancement of bilateral kidneys with no stones along course of the ureters and no hydronephrosis or hydroureter. No perinephric stranding. No bowel obstruction, pneumoperitoneum, or pneumatosis. No free fluid or loculated fluid collection. Slight hazy increased attenuation in bowel mesentery is likely artifactual. Pelvic contents unremarkable. Normal appendix. Abdominal aorta normal in size. Bilateral small fat containing inguinal hernias. No acute fracture. IMPRESSION: No acute findings. This document has been electronically signed by: Maliha Marshall MD on 03/28/2025 21:28:24 Dictated By: Maliha Marshall MD Signed By: <Electronically signed by Maliha Marshall MD in OV> 03/28/252128 DD/ 27 TD/TT: 03/28/252127 Theatre Instructor: Signed Patient: Adi Way MR#: [id number] : 2000 Acct:[id number] Age/Sex: 24 / M ADM Date: 03/28/25 Loc: HO.ED Attending Dr: Ordering Physician: Wilber Quintanilla Date of Service: 03/28/25 Procedure(s): US abdomen limited Accession Number(s): [id number] cc: Wilber Quintanilla; Physician,None ~ CLINICAL HISTORY: RUQ pain, known stones US abdomen limited Comparison: US/SR - US ABDOMEN LIMITED - 03/23/25 12:37 EDT Findings: Examination limited by patient's body habitus. The pancreas, IVC and aorta not visualized. Liver not imaged. The common duct is 5-6 mm in diameter. Echogenic foci in the gallbladder consistent with cholelithiasis. There is no sonographic Siu sign. Gallbladder wall measures 4 mm slightly thickened similar to previous examination. No pericholecystic fluid. IMPRESSION: 1. Cholelithiasis with gallbladder wall slightly thickened measuring 4 mm. This appears stable. Common bile duct within normal limits. This document has been electronically signed by: Maliha Marshall MD on 03/28/2025 19:27:34 Dictated By: Maliha Marshall MD Signed By: <Electronically signed by Maliha Marshall MD in [place]> 03/28/251927 DD/ 26 TD/TT: 03/28/251926 Theatre Instructor: Assessment and Plan (1) Biliary colic: Status: Acute Plan 24-year-old male with abdominal pain slightly elevated white count little elevated LFTs tender in the right upper quadrant but imaging does not look very significant. Question biliary colic with some mild cholecystitis. At this point plan is to admit NPO IV fluid hydration follow up labs in the morning pain control IV antibiotics and re-evaluate. If there is some degree of cholecystitis or still in question consider HIDA scan or then plan for laparoscopic cholecystectomy. Other workup so far has been negative to explain his temperature and tachycardia. It has improved with resuscitation he understands and agrees with the above plan Quality Stroke Does the patient have a stroke diagnosis?: No VTE Prior VTE?: No VTE Risk Level:: Surgical - low VTE Device Contraindication: N/A - Device Ordered VTE Drug Contraindication: N/A - Med Ordered Procedures Date of Service Date of Service: 03/28/25
[2025-03-29] VITALS (10 sets, daily range): BP systolic 119–168; BP diastolic 70–89; PULSE 77–110; RESP 16–21; TEMP 36.3–37.2; O2SAT 93–98; BMI 38.0
[2025-03-29] MEDS: KCl 40 mEq in 0.9 % Sodium Chl 40 MEQ/1,000 ML IV.SOLN 150 MEQ IVCONT ×4 (00:06→19:53)
[2025-03-29 04:37] LABS: MANUAL DIFF FLAG NO
[2025-03-29 04:38] LABS: Hematocrit 31.6 % (42.0-52.0); Hemoglobin 10.2 g/dl (14.0-18.0); Imm Gran Abs Auto 0.02 X10*3/uL (0.00-0.03); Imm Gran Pct Auto 0.3 % (0.0-0.4); Lymphocytes Absolute Auto 1.4 X10*3/uL (1.2-4.9); Mean Corpuscular HGB Conc 32.3 g/dl (31.0-36.0); Mean Corpuscular Hemoglobin 25.3 pg (27.0-33.0); Mean Corpuscular Volume 78.4 fL (80.0-98.0); NRBC Abs Auto 0.000 X10*3/uL (0.0-0.012); NRBC Pct Auto 0.0 /100WBC (0.0-0.2); Platelet Count 180 X10*3/uL (160-400); Red Blood Count 4.03 X10*6/uL (4.60-5.80); White Blood Count 7.4 X10*3/uL (4.8-10.8)
[2025-03-29] MEDS: Calcium Gluconate/NaCl,Iso-Osm 2 GM/100 ML PLAST..BAG IV (05:22)
--- NOTE | 2025-03-29 08:34 | PC.NURSE ---
patient a&ox3, ivf running per order, rr equal/non labored-lungs clear, pt c/o 7-05/10 abd pain, vss, pt medicated per order, pt to go to S3 pt aware he will be transported to floor. call jackson within reach, plan of care ongoing
--- NOTE | 2025-03-29 10:24 | MHC.CM.PN ---
PATIENT COMES FROM HOME W/ SISTER. FUNCTIONALLY INDEPENDENT. DENIES USE OF DME OR SERVICES. NO PCP. VMG BROCHURE GIVEN. DISCUSSED THE IMPORTANCE OF ESTABLISHING CARE. PATIENT WILL SCHEDULE APPT. NO HCP. CM PROVIDED EDUCATION AND OFFERED ASSISTANCE. PATIENT DECLINED. DP: GOAL IS HOME SELF CARE, SISTER TO TRANSPORT. CM WILL CONTINUE TO FOLLOW.
[2025-03-29 10:38] LABS: MANUAL DIFF FLAG NO
[2025-03-29 10:45] LABS: Hematocrit 36.9 % (42.0-52.0); Hemoglobin 11.6 g/dl (14.0-18.0); Imm Gran Abs Auto 0.02 X10*3/uL (0.00-0.03); Imm Gran Pct Auto 0.2 % (0.0-0.4); Lymphocytes Absolute Auto 1.3 X10*3/uL (1.2-4.9); Mean Corpuscular HGB Conc 31.4 g/dl (31.0-36.0); Mean Corpuscular Hemoglobin 25.0 pg (27.0-33.0); Mean Corpuscular Volume 79.5 fL (80.0-98.0); NRBC Abs Auto 0.000 X10*3/uL (0.0-0.012); NRBC Pct Auto 0.0 /100WBC (0.0-0.2); Platelet Count 217 X10*3/uL (160-400); Red Blood Count 4.64 X10*6/uL (4.60-5.80); White Blood Count 8.0 X10*3/uL (4.8-10.8)
[2025-03-29 11:05] LABS: Alanine Aminotransferase 104 U/L (0-40); Albumin Level 3.5 g/dL (3.5-5.0); Alkaline Phosphatase 98 U/L (39-117); Anion Gap 10 (12-20); Aspartate Amino Transferase 71 U/L (5-37); Blood Urea Nitrogen 13 mg/dL (9-16); Calcium 8.0 mg/dL (8.4-10.2); Carbon Dioxide 20 mmol/L (22-29); Chloride 113 mmol/L (96-108); Creatinine Clr Calc Pharmacy 240.3; Estimated Glomerular Filt Rate > 60; Potassium 3.8 mmol/L (3.3-5.1); Sodium 139 mmol/L (135-145); Total Protein 5.8 g/dL (6.5-8.0)
[2025-03-29 11:08] LABS: Magnesium 2.0 mg/dL (1.6-2.6)
--- NOTE | 2025-03-29 11:38 | PHA.MEDREC ---
Addendum entered by Laurie Crawford RPh 03/29/25 11:47: Reviewed by [facility] Original Note: Pharmacy Consult ? Medication Reconciliation Pharmacy has completed the medication reconciliation. Spoke with pt and he confirmed his medications. Pt confirmed he is not taking the [place] Carbonate anymore due to not liking how it made the pt feel and states he stopped it about 1 month ago. Pt states he is still taking Zolpidem (Ambien) 12.5mg tabs as needed for sleep at bedtime. Pt confirmed his Zepbound once a week on and confirmed it just recently increased from 12.5mg to 15mg. Pt believes he took all his medications about 2 days ago.
[2025-03-29] MEDS: 0.9 % Sodium Chloride Flush 3 ML SYRINGE IVFLUSH ×2 (16:21→23:54)
--- NOTE | 2025-03-29 21:08 | P.PNGS_ITS ---
Subjective Subjective Date of Service: 03/29/25 Interval history: Patient having less pain than yesterday but still feeling pain on his right upper quadrant radiating to his back and nausea. We are having trouble with his blood work as they took blood from him but it twice and it got contaminated and eventually got bled for a 3rd time in his LFTs were elevated. Physical Exam 2 Vital Signs: Vital Signs: Last Vital Signs Temp 97.4 F 03/29/25 19:08 Pulse 92 03/29/25 19:08 Resp 18 03/29/25 19:08 BP 137/84 03/29/25 19:08 Pulse Ox 97 03/29/25 19:08 O2 Del Method Room Air 03/29/25 19:08 O2 Flow Rate 2 03/28/25 19:51 BMI result Body Mass Index 38.0 Const: General: cooperative, comfortable and acute distress mild Resp: Effort & Inspection: normal respiratory effort Auscultation: clear to auscultation bilaterally Cardio: Rate: regular rate Rhythm: regular rhythm GI: Other: Abdomen is soft nondistended he is tender in the right upper quadrant with some guarding no rebound no peritoneal signs active bowel sounds Objective Data Active Medications Clonazepam (Clonazepam 0.5 Mg Tablet) 0.5 mg PO BID PRN PRN Reason: Anxiety Last Admin: 03/29/25 18:14 Dose: 0.5 mg Documented By: FRANKY Enoxaparin Sodium (Enoxaparin Sodium 40 Mg/0.4 Ml Syringe) 40 mg SUBCUT Q24H [facility] Last Admin: 03/28/25 23:45 Dose: 40 mg Documented By: ROSALIND Piperacillin Sod/Tazobactam (Sod 3.375 gm/ Sodium Chloride) 50 mls @ 100 mls/hr IV Q6H [facility] Last Infusion: 03/29/25 18:01 Dose: Infused Documented By: FRANKY Potassium Chloride/Sodium Chloride (Kcl 40 Meq In 0.9 % Sodium Chl) 40 meq in 1,000 mls @ 150 mls/hr IVCONT .Q6H40M [facility] Last Admin: 03/29/25 19:53 Dose: 150 mls/hr Documented By: COORNA Ketorolac Tromethamine (Ketorolac Tromethamine 30 Mg/Ml Vial) 30 mg IVPUSH Q6H PRN PRN Reason: Pain, Moderate(Pain Scale 4-6) Stop: 04/02/25 22:26 Last Admin: 03/29/25 16:21 Dose: 30 mg Documented By: FRANKY Morphine Sulfate (Morphine Sulfate 4 Mg/Ml Cartridge) 4 mg IVPUSH Q4H PRN; Protocol PRN Reason: Pain, Severe (Pain Scale 7-10) Last Admin: 03/29/25 19:50 Dose: 4 mg Documented By: CORONA Pantoprazole Sodium (Pantoprazole Sodium 40 Mg/10 Ml Vial) 40 mg IVPUSH DAILY [facility] Last Admin: 03/29/25 08:18 Dose: 40 mg Documented By: RAGHU Sodium Chloride (0.9 % Sodium Chloride Flush 3 Ml Syringe) 3 ml IVFLUSH QSHIFT [facility] Last Admin: 03/29/25 16:21 Dose: 3 ml Documented By: FRANKY Labs 03/29/25 10:09 03/29/25 10:09 Labs: Laboratory Results - last 24 hr 03/29/25 03/29/25 03/29/25 04:32 05:38 10:09 MCV 78.4 L 79.5 L MCH 25.3 L 25.0 L MCHC 32.3 31.4 RDW 14.4 14.3 Plt Count 180 D 217 MPV 8.7 L 8.9 L Immature Gran % (Auto) 0.3 0.2 Neut % (Auto) 64.4 68.6 Lymph % (Auto) 19.5 L 16.7 L [place] % (Auto) 13.3 H 12.2 H Eos % (Auto) 2.2 2.2 Baso % (Auto) 0.3 0.1 Lymph # (Auto) 1.4 1.3 [place] # (Auto) 1.0 1.0 Eos # (Auto) 0.2 0.2 Baso # (Auto) 0.0 0.0 Abs Immat Gran (auto) 0.02 0.02 Absolute Neuts (auto) 4.7 5.5 Absolute Nucleated RBC 0.000 0.000 Nucleated RBC % (auto) 0.0 0.0 Anion Gap TNP 10 L Estim Creat Clear Calc TNP 240.3 Estimated GFR TNP > 60 Random Glucose TNP Fasting Glucose 82 Calcium TNP 8.0 L D Ionized Calcium Cancelled Phosphorus TNP 1.9 L Magnesium TNP 2.0 Total Bilirubin TNP 0.7 AST TNP 71 H ALT TNP 104 H Alkaline Phosphatase TNP 98 Total Protein TNP 5.8 L Albumin TNP 3.5 25-OH Vitamin D Total TNP 13.6 L Microbiology Microbiology Results: Microbiology 03/28/25 18:19 Blood Culture - Preliminary Blood - Venous No growth after 24 hours. 03/28/25 18:19 Blood Culture - Preliminary Blood - Venous No growth after 24 hours. Procedures Date of Service Date of Service: 03/29/25 Progress Note: A&P Assessment and plan (1) Biliary colic: Status: Acute Assessment and Plan: 24-year-old male with right upper quadrant pain elevated LFTs little nausea ultrasound and CT not very remarkable but findings really consistent with released biliary colic if not some degree of cholecystitis. Plan to do a laparoscopic cholecystectomy. Discussed with anesthesia team and would prefer to have patient undergo procedure on Sunday morning. We will allow him to do liquids and then make him NPO after midnight. Time Spent With Patient Time: Total time managing care of this patient today ____ minutes. Quality Stroke Does the patient have a stroke diagnosis?: No VTE Prior VTE?: No VTE Risk Level:: Surgical - low VTE Device Contraindication: N/A - Device Ordered VTE Drug Contraindication: N/A - Med Ordered
[2025-03-30] VITALS (11 sets, daily range): BP systolic 99–152; BP diastolic 45–89; PULSE 77–108; RESP 16–20; TEMP 36.2–37.2; O2SAT 93–99
[2025-03-30] MEDS: KCl 40 mEq in 0.9 % Sodium Chl 40 MEQ/1,000 ML IV.SOLN 150 MEQ IVCONT ×3 (03:00→21:50)
[2025-03-30 05:46] LABS: MANUAL DIFF FLAG NO
[2025-03-30 05:51] LABS: Hematocrit 40.0 % (42.0-52.0); Hemoglobin 12.5 g/dl (14.0-18.0); Imm Gran Abs Auto 0.02 X10*3/uL (0.00-0.03); Imm Gran Pct Auto 0.3 % (0.0-0.4); Lymphocytes Absolute Auto 1.9 X10*3/uL (1.2-4.9); Mean Corpuscular HGB Conc 31.3 g/dl (31.0-36.0); Mean Corpuscular Hemoglobin 24.8 pg (27.0-33.0); Mean Corpuscular Volume 79.4 fL (80.0-98.0); NRBC Abs Auto 0.000 X10*3/uL (0.0-0.012); NRBC Pct Auto 0.0 /100WBC (0.0-0.2); Platelet Count 243 X10*3/uL (160-400); Red Blood Count 5.04 X10*6/uL (4.60-5.80); White Blood Count 6.9 X10*3/uL (4.8-10.8)
[2025-03-30 06:05] LABS: Alanine Aminotransferase 94 U/L (0-40); Albumin Level 3.8 g/dL (3.5-5.0); Alkaline Phosphatase 98 U/L (39-117); Anion Gap 12 (12-20); Aspartate Amino Transferase 38 U/L (5-37); Blood Urea Nitrogen 6 mg/dL (9-16); Calcium 8.4 mg/dL (8.4-10.2); Carbon Dioxide 21 mmol/L (22-29); Chloride 109 mmol/L (96-108); Creatinine Clr Calc Pharmacy 258.5; Estimated Glomerular Filt Rate > 60; Potassium 4.2 mmol/L (3.3-5.1); Sodium 138 mmol/L (135-145); Total Protein 6.6 g/dL (6.5-8.0)
--- NOTE | 2025-03-30 07:54 | PM.PNGS ---
Subjective Subjective Date of Service: 03/30/25 Interval history: History reviewed Patient morbidly obese Currently comfortable without pain but describes an episode of pain early this morning No nausea or vomiting No fever Physical Exam Vital Signs: Vital Signs: Last Vital Signs Temp 98.0 F 03/30/25 03:04 Pulse 86 03/30/25 03:04 Resp 16 03/30/25 03:04 BP 133/83 03/30/25 03:04 Pulse Ox 96 03/30/25 03:04 O2 Del Method Room Air 03/30/25 03:04 O2 Flow Rate 2 03/28/25 19:51 BMI result Body Mass Index 38.0 Const: Other: Appears comfortable General: No no acute distress Nutritional Appearance: obese Resp: Effort & Inspection: normal respiratory effort Cardio: Rate: regular rate GI: Other: Not tender currently Palpation (GI): Soft to palpation, not firm, nontender and no guarding Objective Data Active Medications Clonazepam (Clonazepam 0.5 Mg Tablet) 0.5 mg PO BID PRN PRN Reason: Anxiety Last Admin: 03/29/25 18:14 Dose: 0.5 mg Documented By: FRANKY Enoxaparin Sodium (Enoxaparin Sodium 40 Mg/0.4 Ml Syringe) 40 mg SUBCUT Q24H [facility] Last Admin: 03/29/25 23:53 Dose: 40 mg Documented By: CORONA Piperacillin Sod/Tazobactam (Sod 3.375 gm/ Sodium Chloride) 50 mls @ 100 mls/hr IV Q6H [facility] Last Infusion: 03/30/25 06:28 Dose: Infused Documented By: CORONA Potassium Chloride/Sodium Chloride (Kcl 40 Meq In 0.9 % Sodium Chl) 40 meq in 1,000 mls @ 150 mls/hr IVCONT .Q6H40M [facility] Last Admin: 03/30/25 03:00 Dose: 150 mls/hr Documented By: CORONA Ketorolac Tromethamine (Ketorolac Tromethamine 30 Mg/Ml Vial) 30 mg IVPUSH Q6H PRN PRN Reason: Pain, Moderate(Pain Scale 4-6) Stop: 04/02/25 22:26 Last Admin: 03/29/25 16:21 Dose: 30 mg Documented By: FRANKY Lorazepam (Lorazepam 1 Mg Tablet) 1 mg PO BEDTIME PRN PRN Reason: sleep Morphine Sulfate (Morphine Sulfate 4 Mg/Ml Cartridge) 4 mg IVPUSH Q4H PRN; Protocol PRN Reason: Pain, Severe (Pain Scale 7-10) Last Admin: 03/30/25 05:50 Dose: 4 mg Documented By: CORONA Ondansetron HCl (Ondansetron Hcl 4 Mg/2 Ml Vial) 4 mg IVPUSH Q6H PRN PRN Reason: Nausea and Vomiting Pantoprazole Sodium (Pantoprazole Sodium 40 Mg/10 Ml Vial) 40 mg IVPUSH DAILY [facility] Last Admin: 03/29/25 08:18 Dose: 40 mg Documented By: MAKSOC Sodium Chloride (0.9 % Sodium Chloride Flush 3 Ml Syringe) 3 ml IVFLUSH QSHIFT [facility] Last Admin: 03/29/25 23:54 Dose: 3 ml Documented By: CORONA Labs 03/30/25 05:39 03/30/25 05:39 Labs: Laboratory Results - last 24 hr 03/29/25 03/29/25 03/30/25 05:38 10:09 05:39 MCV 79.5 L 79.4 L MCH 25.0 L 24.8 L MCHC 31.4 31.3 RDW 14.3 14.1 Plt Count 217 243 MPV 8.9 L 8.8 L Immature Gran % (Auto) 0.2 0.3 Neut % (Auto) 68.6 57.7 Lymph % (Auto) 16.7 L 27.0 [place] % (Auto) 12.2 H 10.9 Eos % (Auto) 2.2 3.8 Baso % (Auto) 0.1 0.3 Lymph # (Auto) 1.3 1.9 [place] # (Auto) 1.0 0.8 Eos # (Auto) 0.2 0.3 Baso # (Auto) 0.0 0.0 Abs Immat Gran (auto) 0.02 0.02 Absolute Neuts (auto) 5.5 4.0 Absolute Nucleated RBC 0.000 0.000 Nucleated RBC % (auto) 0.0 0.0 Anion Gap 10 L 12 Estim Creat Clear Calc 240.3 258.5 Estimated GFR > 60 > 60 Random Glucose 78 Fasting Glucose 82 Calcium 8.0 L D 8.4 Ionized Calcium Cancelled Phosphorus TNP 1.9 L Magnesium TNP 2.0 Total Bilirubin 0.7 0.4 AST 71 H 38 H ALT 104 H 94 H Alkaline Phosphatase 98 98 Total Protein 5.8 L 6.6 Albumin 3.5 3.8 25-OH Vitamin D Total TNP 13.6 L Microbiology Microbiology Results: Microbiology 03/28/25 18:19 Blood Culture - Preliminary Blood - Venous No growth after 24 hours. 03/28/25 18:19 Blood Culture - Preliminary Blood - Venous No growth after 24 hours. Procedures Date of Service Date of Service: 03/30/25 Progress Note: A&P Assessment and plan (1) Biliary colic: Status: Acute Assessment and Plan: he continues to have episodes of right upper quadrant pain Currently nontender He wants to proceed with cholecystectomy in view of this repeated episodes I explained the technique of laparoscopic cholecystectomy and possible open I reviewed the risks including but not limited to bleeding, infections, injury to other organs including bowel, liver and the bile ducts, bile leak, retained stones, as well as the benefits and alternatives He is morbidly obese and understands that these perioperative risks are higher than average He understands and wants to proceed Patient is on the add on schedule for today Time Spent With Patient Time: Total time managing care of this patient today ____ minutes. Quality Stroke Does the patient have a stroke diagnosis?: No VTE Prior VTE?: No VTE Risk Level:: Surgical - low VTE Device Contraindication: N/A - Device Ordered VTE Drug Contraindication: N/A - Med Ordered
[2025-03-30] MEDS: 0.9 % Sodium Chloride Flush 3 ML SYRINGE IVFLUSH (08:54)
--- NOTE | 2025-03-30 10:35 | PM.EVENT ---
Event Note Date of Service: 03/30/25 Event Note: Went to see patient to update him about schedule I explained to him that are still trying to get him to the OR today but the schedule is tight He was very belligerent and used a lot of 4 letter words He stated that he had been NPO all day and has been ?starving? I tried to explain to him that we are trying our best to have his procedure done today Patient uncooperative, did not want to to listen to explanation He was threatening to leave the hospital Is on Zepbound - last dose was March 26 Okay to he had with surgery in view of recurrent symptoms of right upper quadrant pain - he has not had significant oral intake in 48 hours Time Spent With Patient Time: Total time managing care of this patient today ____ minutes.
--- NOTE | 2025-03-30 12:50 | HO.ANESPROP2 ---
HPI - Anesthesia Eval Consult details Narrative: eugenia ruben PMFSH Active Problems Active Problems: All Active Problems Biliary colic (Acute) Past Medical History Medical History Smoker Anxiety Family History Family history of problems with anesthesia: No Surgical History Surgical History Hx of wisdom tooth extraction History of Problems with Anesthesia: No Social History Social History Household Members: Family Housing: House Are you a primary health care aide to a significant other at home: No Do you presently have visiting nurse or other home services: No Patient Tobacco Use Status: Current everyday Tobacco user Tobacco use type: Cigarette e-Cigarette/Vaping Use: Currently Using Second Hand Smoke Exposure: No service: No Meds Allergies Allergy/AdvReac Type Severity Reaction Status Date / Time No Known Allergies Allergy Verified 03/30/25 12:35 Active Medications: Current Medications Clonazepam (Clonazepam 0.5 Mg Tablet) 0.5 mg PO BID PRN PRN Reason: Anxiety Last Admin: 03/30/25 10:16 Dose: 0.5 mg Enoxaparin Sodium (Enoxaparin Sodium 40 Mg/0.4 Ml Syringe) 40 mg SUBCUT Q24H [facility] Last Admin: 03/29/25 23:53 Dose: 40 mg Piperacillin Sod/Tazobactam (Sod 3.375 gm/ Sodium Chloride) 50 mls @ 100 mls/hr IV Q6H [facility] Last Infusion: 03/30/25 12:04 Dose: Infused Potassium Chloride/Sodium Chloride (Kcl 40 Meq In 0.9 % Sodium Chl) 40 meq in 1,000 mls @ 150 mls/hr IVCONT .Q6H40M [facility] Last Admin: 03/30/25 10:16 Dose: 150 mls/hr Ketorolac Tromethamine (Ketorolac Tromethamine 30 Mg/Ml Vial) 30 mg IVPUSH Q6H PRN PRN Reason: Pain, Moderate(Pain Scale 4-6) Stop: 04/02/25 22:26 Last Admin: 03/29/25 16:21 Dose: 30 mg Lorazepam (Lorazepam 1 Mg Tablet) 1 mg PO BEDTIME PRN PRN Reason: sleep Morphine Sulfate (Morphine Sulfate 4 Mg/Ml Cartridge) 4 mg IVPUSH Q4H PRN; Protocol PRN Reason: Pain, Severe (Pain Scale 7-10) Last Admin: 03/30/25 11:16 Dose: 4 mg Ondansetron HCl (Ondansetron Hcl 4 Mg/2 Ml Vial) 4 mg IVPUSH Q6H PRN PRN Reason: Nausea and Vomiting Pantoprazole Sodium (Pantoprazole Sodium 40 Mg/10 Ml Vial) 40 mg IVPUSH DAILY [facility] Last Admin: 03/30/25 08:54 Dose: 40 mg Sodium Chloride (0.9 % Sodium Chloride Flush 3 Ml Syringe) 3 ml IVFLUSH QSHIFT [facility] Last Admin: 03/30/25 08:54 Dose: 3 ml Home Medications ?Medication ?Instructions ?Recorded ?Confirmed ?Last Taken ?Type clonazepam 0.5 mg tablet 0.5 mg PO BID PRN Anxiety 03/29/25 03/29/25 Unknown History tirzepatide (weight loss) 15 15 mg subcut TH 03/29/25 03/29/25 03/26/25 History mg/0.5 mL subcutaneous pen injector (Zepbound) zolpidem 12.5 mg tablet,extended 12.5 mg PO BEDTIME PRN Sleep 03/29/25 03/29/25 Unknown History release,multiphase Exam Height,Weight and Vital Signs: Height 5 ft 9 in Weight 116.7 kg Last Vital Signs Temp 98.6 F 03/30/25 11:58 Pulse 100 03/30/25 11:58 Resp 18 03/30/25 11:58 BP 152/85 H 03/30/25 11:58 Pulse Ox 97 03/30/25 11:58 O2 Del Method Room Air 03/30/25 11:58 O2 Flow Rate 2 03/28/25 19:51 Pertinent Lab Results Pertinent Lab Results: Laboratory Tests 03/28/25 03/28/25 03/28/25 18:19 18:20 19:50 WBC 11.8 H RBC 5.58 Hgb 14.1 Hct 43.0 MCV 77.1 L MCH 25.3 L MCHC 32.8 RDW 14.2 Plt Count 291 MPV 9.4 Immature Gran % (Auto) 0.3 Neut % (Auto) 78.9 H Lymph % (Auto) 10.8 L [place] % (Auto) 9.1 Eos % (Auto) 0.7 Baso % (Auto) 0.2 Lymph # (Auto) 1.3 Ray # (Auto) 1.1 Eos # (Auto) 0.1 Baso # (Auto) 0.0 Abs Immat Gran (auto) 0.03 Absolute Neuts (auto) 9.3 H Absolute Nucleated RBC 0.000 Nucleated RBC % (auto) 0.0 Sodium 140 Potassium 3.1 L Chloride 113 H Carbon Dioxide 19 L Anion Gap 11 L BUN 18 H Creatinine 0.67 Estim Creat Clear Calc 215.2 Estimated GFR > 60 Random Glucose 92 Fasting Glucose Lactic Acid 1.0 Calcium 7.2 L D Ionized Calcium Phosphorus Magnesium Total Bilirubin 0.6 Direct Bilirubin 0.3 AST 39 H ALT 68 H Alkaline Phosphatase 88 Total Protein 5.5 L Albumin 3.4 L Lipase 16 25-OH Vitamin D Total Urine Color Urine Appearance Urine pH Ur Specific [place] Urine Protein Urine Glucose (UA) Urine Ketones Urine Blood Urine Nitrite Ur Leukocyte Esterase Blood Type Antibody Screen 03/28/25 03/29/25 03/29/25 20:05 04:32 05:38 WBC 7.4 RBC 4.03 L D Hgb 10.2 L D Hct 31.6 L D MCV 78.4 L MCH 25.3 L MCHC 32.3 RDW 14.4 Plt Count 180 D MPV 8.7 L Immature Gran % (Auto) 0.3 Neut % (Auto) 64.4 Lymph % (Auto) 19.5 L [place] % (Auto) 13.3 H Eos % (Auto) 2.2 Baso % (Auto) 0.3 Lymph # (Auto) 1.4 [place] # (Auto) 1.0 Eos # (Auto) 0.2 Baso # (Auto) 0.0 Abs Immat Gran (auto) 0.02 Absolute Neuts (auto) 4.7 Absolute Nucleated RBC 0.000 Nucleated RBC % (auto) 0.0 Sodium TNP Potassium TNP Chloride TNP Carbon Dioxide TNP Anion Gap TNP BUN TNP Creatinine TNP Estim Creat Clear Calc TNP Estimated GFR TNP Random Glucose TNP Fasting Glucose Lactic Acid Calcium TNP Ionized Calcium Cancelled Phosphorus TNP Magnesium TNP Total Bilirubin TNP Direct Bilirubin AST TNP ALT TNP Alkaline Phosphatase TNP Total Protein TNP Albumin TNP Lipase 25-OH Vitamin D Total TNP Urine Color Yellow Urine Appearance Clear Urine pH 6.0 Ur Specific [place] 1.025 Urine Protein Negative Urine Glucose (UA) Negative Urine Ketones Trace Urine Blood Negative Urine Nitrite Negative Ur Leukocyte Esterase Negative Blood Type Antibody Screen 03/29/25 03/30/25 03/30/25 10:09 05:39 09:58 WBC 8.0 6.9 RBC 4.64 5.04 Hgb 11.6 L 12.5 L Hct 36.9 L 40.0 L MCV 79.5 L 79.4 L MCH 25.0 L 24.8 L MCHC 31.4 31.3 RDW 14.3 14.1 Plt Count 217 243 MPV 8.9 L 8.8 L Immature Gran % (Auto) 0.2 0.3 Neut % (Auto) 68.6 57.7 Lymph % (Auto) 16.7 L 27.0 Ray % (Auto) 12.2 H 10.9 Eos % (Auto) 2.2 3.8 Baso % (Auto) 0.1 0.3 Lymph # (Auto) 1.3 1.9 Ray # (Auto) 1.0 0.8 Eos # (Auto) 0.2 0.3 Baso # (Auto) 0.0 0.0 Abs Immat Gran (auto) 0.02 0.02 Absolute Neuts (auto) 5.5 4.0 Absolute Nucleated RBC 0.000 0.000 Nucleated RBC % (auto) 0.0 0.0 Sodium 139 138 Potassium 3.8 D 4.2 Chloride 113 H 109 H Carbon Dioxide 20 L 21 L Anion Gap 10 L 12 BUN 13 6 L Creatinine 0.60 0.56 Estim Creat Clear Calc 240.3 258.5 Estimated GFR > 60 > 60 Random Glucose 78 Fasting Glucose 82 Lactic Acid Calcium 8.0 L D 8.4 Ionized Calcium Phosphorus 1.9 L Magnesium 2.0 Total Bilirubin 0.7 0.4 Direct Bilirubin AST 71 H 38 H ALT 104 H 94 H Alkaline Phosphatase 98 98 Total Protein 5.8 L 6.6 Albumin 3.5 3.8 Lipase 25-OH Vitamin D Total 13.6 L Urine Color Urine Appearance Urine pH Ur Specific [place] Urine Protein Urine Glucose (UA) Urine Ketones Urine Blood Urine Nitrite Ur Leukocyte Esterase Blood Type O Positive Antibody Screen NEGATIVE Airway Mallampati Class: II (multiple nose and lip piercings , not removable per pt, risks accepted) TM Dist: >3cm Neck ROM: Full Heart: rrr Lungs: cta Assessment and Plan Assessment Anesthesia Assessment: Anesthesia Plan Discussed Final Anesthetic Review Family History of Problems with Anesthesia: No History of Problems with Anesthesia: No NPO: Yes ASA Class: III Final Preanesthetic Review: No Changes in Pt Med Stat, Meds/Allgs Chart Reviewed, Consent Obtained/Reviewed and Anes Risks/Benef Reviewed Patient Risk: Intermediate Procedure Risk: Intermediate Anesthetic Plan Anesthetic Plan: GA Disposition: Standard PACU
--- NOTE | 2025-03-30 14:58 | W.PM.OPN ---
Operative Note Operative Note Date of Service: 03/30/25 Narrative: Preop diagnosis: Acute cholecystitis with multiple gallstones Postop diagnosis: The same Procedure: Laparoscopic cholecystectomy Surgeon: Ion Simeon MD registered nurse first assistant: ETHEL Perkins The patient is a 24-year-old male, with morbid obesity, admitted by Dr. Menjivar because of right upper quadrant pain and tenderness. His imaging studies showed findings suggestive of acute cholecystitis. He continued to have pain however and wanted to proceed with cholecystectomy. He understood the technique of the planned procedure as well as the risks, benefits, and alternatives. He was brought to the operating room. He was placed supine under general anesthesia via endotracheal tube. The abdomen was prepped and draped in the usual sterile fashion. A surgical time-out was done. The patient was receiving scheduled IV antibiotics. I made a short incision above the umbilicus of the midline with a blade 15. This carried down through the full-thickness of the skin and subcutaneous fat. It was noted the patient was morbidly obese so we had to go through very thick amount of subcutaneous fat before we reached the fascia. The fascia was incised. The peritoneum was entered. Through this incision a Chavez port was introduced. Pneumoperitoneum was introduced to a pressure of 15 mm Hg. From here on the rest of procedure was done under vision with the laparoscope. We initially used a 10 very 0 degree scope. With laparoscopic visualization I inserted a 12 mm port in the epigastric area below the subcostal margin. Two 5 mm ports introduced a small incision below the subcostal margin along the anterior axillary line and the midclavicular line. Graspers were placed through these working ports. The patient is placed in the steep head up [id number] position. The gallbladder was seen at the fundus. This appeared to be markedly inflamed. We were however able to apply a grasper at the fundus to retract this cephalad. There was note of large amounts of inflammatory adhesions towards the neck. We could not visualize the neck because of the patient's habitus with the deep location of the distal gallbladder. Furthermore, we had to do careful dissection of the adhesions in the neck to clear this off of the adjacent stomach. By doing so we are able to achieve some mobilization and we are able to retract the gallbladder more cephalad. The neck of the gallbladder appeared deep because of the patient's habitus so we had to switch to a 30 degree scope. This allowed us better visualization. I continued to gently dissect the neck with a combination of blunt dissection with the tip of the suction food inspector, as well as with the [place] dissector. Eventually was able to apply a grasper towards the pouch of the gallbladder and this was used to retract the gallbladder laterally. I continued to do careful dissection of the area until was able to achieve a critical view of the hepatocystic triangle. There was note of a lot of the adherent and inflamed fatty tissue at the inferior wall of the gallbladder which we had to carefully and bluntly dissect. The cystic duct as well as the cystic artery were seen and we carefully define this some more. Once we were able to confirm the confluence of the neck of the gallbladder with the cystic duct, I applied clips on the cystic duct with 2 clips being applied distally. The cystic duct was transected between clips endo-scissors. I carefully define the cystic artery as well and clips were applied. Two clips were applied distally the cystic artery was transected between clips with Endo scissors With traction on the gallbladder away from the liver bed, I carefully dissected the rest of the inflamed fatty areolar tissue surrounding the inferior wall of the gallbladder until I was able to see the interface of the gallbladder wall and the liver bed. There was note of a lot of indurated tissue so I had to use the L hook cautery to divide through this indurated peritoneal tissue to separate the gallbladder from the liver bed. I carefully the gallbladder along this plane of dissection. In view of the inflammation, this plane of dissection was not well-defined so we had to proceed slowly all the way to the fundus until the entire gallbladder was completely . There was note of a tear in the gallbladder wall with some leakage of bile from this along with a stone which we are able to retrieved. The gallbladder was noted to be filled with multiple gallstones We are able to retrieved the gallbladder through the umbilical incision via an endobag. We then to lengthen the fascia as well as the skin incision to accommodate the size of the gallbladder which was packed with stones We reinserted all ports and re-insufflated I copiously irrigated. I suctioned out the irrigant fluid until it was clear. 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 There was no other pathology. There was no evidence of any bowel injury There was note of good hemostasis in the liver bed. We therefore desufflated through the port sites. The ports were removed with visualization. The umbilical port was removed last. The fascia of the umbilical incision was closed with a [id number] Polysorb 0 stitch. We made sure that the bowel loops were not caught by the sutures. Skin closure was achieved on all incisions using Polysorb 4-0 subcuticular running sutures. All incisions were infiltrated Marcaine 0.5% for postop analgesia. Steri-Strips and dressings were applied. The procedure was completed The patient tolerated the procedure well. There were no immediate complications. Initial final counts of sponges and instruments were correct. Estimated blood loss was about 50 cc The patient was extubated without difficulty and transferred to the recovery room with stable vital signs.
--- NOTE | 2025-03-30 15:20 | MHC.CM.PN ---
EMR REVIEWED. PT HAS UNDERGONE A LAP TOBIN TODAY, CM WILL CONTINUE TO FOLLOW.
--- NOTE | 2025-03-30 16:15 | PM.EVENT ---
Event Note Date of Service: 03/30/25 Event Note: Seen postop Underwent laparoscopic cholecystectomy earlier this afternoon Appears to have good pain control Looks comfortable Stable vital signs Abdomen is soft Pain management Likely to be able to go home tomorrow morning Discussed with his family by phone at [phone] Time Spent With Patient Time: Total time managing care of this patient today ____ minutes.
[2025-03-31 03:43] VITALS: BP 135/63; PULSE 105; RESP 18; TEMP 36.8; O2SAT 96
--- NOTE | 2025-03-31 07:29 | P.PNGS_ITS ---
Subjective Subjective Date of Service: 03/31/25 <Micheal Perkins PA-C - Last Filed: 03/31/25 09:35> 03/31/25 <Ion Simeon MD - Last Filed: 03/31/25 07:38> Patient reports: flatus and no bowel movement <ROGE Montoya Last Filed: 03/31/25 09:35> Interval history: pateint doing well, minimal pain. Denies nausea, vomiting. he is toerating diet well. ambulating without any issue. feels ready to go home. Did mention some itching with oxycodone after previous ED visit. States he has tolerated percocet before, seems to have tolerated oxycodone during this admission without symptoms <ROGE Montoya Last Filed: 03/31/25 09:35> Physical Exam 2 Vital Signs: Vital Signs: Last Vital Signs Temp 98.2 F 03/31/25 03:43 Pulse 105 H 03/31/25 03:43 Resp 18 03/31/25 03:43 BP 135/63 03/31/25 03:43 Pulse Ox 96 03/31/25 03:43 O2 Del Method Room Air 03/31/25 03:43 O2 Flow Rate 2 03/30/25 15:40 BMI result Body Mass Index 38.0 <ROGE Montoya Last Filed: 03/31/25 09:35> Const: General: comfortable and no acute distress <Micheal Perkins PA-C - Last Filed: 03/31/25 09:35> Orientation/consciousness: patient oriented x3 <ROGE Montoya Last Filed: 03/31/25 09:35> Resp: Effort & Inspection: normal respiratory effort and able to speak in complete sentences <ROGE Montoya Last Filed: 03/31/25 09:35> GI: Other: incision site dressing in place, mild oozing, now appear dry and intact. Tender to palpation <ROGE Montoya Last Filed: 03/31/25 09:35> Inspection: No distended <ROGE Montoya Last Filed: 03/31/25 09:35> Palpation (GI): Soft to palpation, not firm, Tenderness to palpation present (GI) (incisional), no guarding and not rigid <Micheal Perkins PA-C - Last Filed: 03/31/25 09:35> Neuro: General: patient oriented x3 <Micheal Perkins PA-C - Last Filed: 03/31/25 09:35> Objective Data Active Medications Acetaminophen (Acetaminophen 325 Mg Tablet) 650 mg PO Q6H PRN PRN Reason: Pain, Mild 1-3,fever,headache Clonazepam (Clonazepam 0.5 Mg Tablet) 0.5 mg PO BID PRN PRN Reason: Anxiety Last Admin: 03/30/25 10:16 Dose: 0.5 mg Documented By: SEDRICK Enoxaparin Sodium (Enoxaparin Sodium 40 Mg/0.4 Ml Syringe) 40 mg SUBCUT Q24H [facility] Last Admin: 03/30/25 23:14 Dose: 40 mg Documented By: JANEL Ketorolac Tromethamine (Ketorolac Tromethamine 30 Mg/Ml Vial) 30 mg IVPUSH Q6H PRN PRN Reason: Pain, Moderate(Pain Scale 4-6) Stop: 04/02/25 22:26 Last Admin: 03/29/25 16:21 Dose: 30 mg Documented By: FRANKY Lorazepam (Lorazepam 1 Mg Tablet) 1 mg PO BEDTIME PRN PRN Reason: sleep Last Admin: 03/31/25 00:50 Dose: 1 mg Documented By: JANEL Morphine Sulfate (Morphine Sulfate 4 Mg/Ml Cartridge) 4 mg IVPUSH Q4H PRN; Protocol PRN Reason: Pain, Severe (Pain Scale 7-10) Last Admin: 03/31/25 02:27 Dose: 4 mg Documented By: JANEL Ondansetron HCl (Ondansetron Hcl 4 Mg/2 Ml Vial) 4 mg IVPUSH Q6H PRN PRN Reason: Nausea and Vomiting Last Admin: 03/30/25 17:13 Dose: 4 mg Documented By: ARIA Oxycodone HCl (Oxycodone Hcl Immed Release 5 Mg Tablet) 5 mg PO Q4H PRN PRN Reason: Pain, Moderate(Pain Scale 4-6) Pantoprazole Sodium (Pantoprazole Sodium 40 Mg/10 Ml Vial) 40 mg IVPUSH DAILY [facility] Last Admin: 03/30/25 08:54 Dose: 40 mg Documented By: SEDRICK Sodium Chloride (0.9 % Sodium Chloride Flush 3 Ml Syringe) 3 ml IVFLUSH QSHIFT [facility] Last Admin: 03/30/25 23:16 Dose: Not Given Documented By: JANEL Non-Admin Reason: IV Running <Micheal Perkins PA-C - Last Filed: 03/31/25 09:35> Labs CBC & Chem 7: 03/30/25 05:39 03/30/25 05:39 <Micheal Perkins PA-C - Last Filed: 03/31/25 09:35> Labs: Laboratory Results - last 24 hr 03/30/25 09:58 Blood Type O Positive Antibody Screen NEGATIVE <Micheal Perkins PA-C - Last Filed: 03/31/25 09:35> Microbiology Microbiology Results: Microbiology 03/28/25 18:19 Blood Culture - Preliminary Blood - Venous No growth after 48 hours. 03/28/25 18:19 Blood Culture - Preliminary Blood - Venous No growth after 48 hours. <Micheal Perkins PA-C - Last Filed: 03/31/25 09:35> Procedures Date of Service Date of Service: 03/31/25 <Micheal Perkins PA-C - Last Filed: 03/31/25 09:35> 03/31/25 <Ion Simeon MD - Last Filed: 03/31/25 07:38> Progress Note: A&P Assessment and plan (1) S/P laparoscopic cholecystectomy: Status: Acute <Micheal Perkins PA-C - Last Filed: 03/31/25 09:35> Assessment and Plan: Feels well Says he had a good night Tolerating diet Good pain control Abdomen is soft and benign Sclerae anicteric Looks comfortable He says he is ready to be discharged this Discharge instructions reinforced with the patient Follow up in the office Seen and examined independently <Ion Simeon MD - Last Filed: 03/31/25 07:38> Assessment and Plan: 24 year old male POD 1 s/p laparascopic cholecystectomy. Patient doing well. States his pain is much improved this morning. Tolerating diet, passing gas, no BM. Has been ambulating around the room and to the bathroom. Abdomen is soft and bengin. Abdomen incision site tenderness, incision sites appear clean dry and intact mild oozing noted on the dressings, dressings remain in place. Patient feels ready for discharge. Patient did not mention feeling itchy after taking oxycodone that was prescribed in the ED last week, states he has taken Percocet in the past without this reaction, we will send him home with Percocet for postop pain control. We discussed his activity limitations going forward and return precautions. Patient will be discharged <Micheal Perkins PA-C - Last Filed: 03/31/25 09:35> Time Spent With Patient Time: Total time managing care of this patient today ____ minutes. <Micheal Perkins PA-C - Last Filed: 03/31/25 09:35> Quality Stroke Does the patient have a stroke diagnosis?: No <Micheal Perkins PA-C - Last Filed: 03/31/25 09:35> VTE Prior VTE?: No <Micheal Perkins PA-C - Last Filed: 03/31/25 09:35> VTE Risk Level:: Surgical - low <Micheal Perkins PA-C - Last Filed: 03/31/25 09:35> VTE Device Contraindication: N/A - Device Ordered <Micheal Perkins PA-C - Last Filed: 03/31/25 09:35> VTE Drug Contraindication: N/A - Med Ordered <Micheal Perkins PA-C - Last Filed: 03/31/25 09:35>
[2025-03-31] MEDS: 0.9 % Sodium Chloride Flush 3 ML SYRINGE IVFLUSH (07:33)
[2025-03-31 07:37] VITALS: BP 131/88; PULSE 103; RESP 18; TEMP 36.4; O2SAT 97
--- NOTE | 2025-03-31 08:38 | MHC.CM.PN ---
DP: PT HAS BEEN MEDICALLY CLEARED FOR DC HOME, NO SERVICES. SISTER WILL TRANSPORT
--- NOTE | 2025-03-31 09:35 | PM.DS ---
DS: Providers Provider Date of Service: 03/31/25 Date of admission: 03/28/25 22:24 Date of discharge: 03/31/25 Primary care physician: Pam Physician Admitting clinician: Felicia Menjivar Attending physician on discharge: Ion Simeon DS: Diagnosis Discharge Diagnosis (1) S/P laparoscopic cholecystectomy: Status: Acute DS: Summary Hospital Course Hospital Course: Admission HPI: Adi Way is a 24 year old male who has been having abdominal pain nausea and vomiting for the last couple of days. He was here in the emergency room several days ago and had a workup which revealed gallstones at the time his white count was slightly elevated LFTs all were normal no fevers or chills. He was discharged with plan to follow up as an outpatient the surgery department. He comes in now complaining of worsening abdominal pain since yesterday and here his LFTs are little elevated he is tachycardic he had an initial temperature of 104 degrees. He met sepsis protocol and was treated with IV fluids resuscitation. He has improved since then. He is still complains of right upper quadrant pain but denies that is been associated with anything in regards to eating. It has been here and that is gotten worse. The medication in the ER has helped him. He has never had issues like this before. He does vape but he does not use any other drugs or alcohol. He denies any urinary symptoms any significant cough. At this point plan is to admit NPO IV fluid hydration follow up labs in the morning pain control IV antibiotics and re-evaluate. If there is some degree of cholecystitis or still in question consider HIDA scan or then plan for laparoscopic cholecystectomy. Other workup so far has been negative to explain his temperature and tachycardia. It has improved with resuscitation he understands and agrees with the above plan Hospital course: On admission day two, patients pain was mildly improved, continued to have nausea and RUQ pain. Plan for laparoscopic cholecystectomy on the morning of 03/30/2025, patient was made NPO. On 03/30/2025 patient continued to have pain, we will manage with pain regimen, nausea or vomiting had improved. We proceeded with laparoscopic cholecystectomy later that afternoon. Patient tolerated the procedure well, diet was resumed for which the patient tolerated well. On POD 1 patient continued to improve, pain was very minimal. His abdomen was soft and benign, incision sites had mild oozing but otherwise look clean and dry. Dressings remain intact. Patient's pain was well controlled, he was ambulating, passing flatus. He felt ready to be discharged. We discussed activity limitations and returning precautions. At the time of discharge the patient was stable in his abdominal exam was soft and benign. Status at Discharge Functional status at discharge: independent ambulation Overall status at discharge: patient is progressing back to baseline Time Attestation Discharge Coordination Time (in mins): 30 Quality: Safe Use of Opioids Does Pt have an Active Cancer Diagnosis on the Problem List?: No Quality: Stroke Does the patient have a stroke diagnosis?: No Physical Exam Vital Signs: Vital Signs: Last Vital Signs Temp 97.6 F 03/31/25 07:37 Pulse 103 H 03/31/25 07:37 Resp 18 03/31/25 07:37 BP 131/88 03/31/25 07:37 Pulse Ox 97 03/31/25 07:37 O2 Del Method Room Air 03/31/25 07:37 O2 Flow Rate 2 03/30/25 15:40 BMI result Body Mass Index 38.0 Const: General: comfortable and no acute distress Orientation/consciousness: patient oriented x3 Resp: Effort & Inspection: normal respiratory effort and able to speak in complete sentences GI: Other: Incision sites appear clean dry and intact mild dried oozing on dressings Inspection: No distended Palpation (GI): Soft to palpation, not firm, Tenderness to palpation present (GI) (Incision site), no guarding and not rigid Neuro: General: patient oriented x3 DS: Data Data Completed and Pending Pending studies at discharge: Pending at discharge 03/30/25 14:37 Surgical [PTH] Routine Labs on day of discharge: Laboratory Results - last 24 hr 03/30/25 09:58 Blood Type O Positive Antibody Screen NEGATIVE Preliminary micro results at discharge 03/28/25 18:19 Blood Culture - Preliminary Blood - Venous No growth after 48 hours. 03/28/25 18:19 Blood Culture - Preliminary Blood - Venous No growth after 48 hours. Discharge Plan Discharge Anticipated Discharge Date/Time: 03/31/25 14:54 Patient Disposition: Home, Self-Care Discharge Diagnosis: s/p laparoscopic cholecystectomy Referrals: Ion Simeon MD [Physician, General Surgery] - 2 Weeks Physician,None [Primary Care Provider, Medical] - 1 Week Discharge Medications: New oxycodone-acetaminophen [Percocet] 5-325 mg tablet 1 tab PO Q6H PRN (Reason: pain (scale score 7-10)) Qty: 16 0RF Rx Instructions: Partial Fill upon patient request. Continued ketorolac 10 mg tablet 10 mg PO Q6H PRN (Reason: pain) Qty: 20 0RF Rx Instructions: Patient received 30mg IM Ketorolac in the ED. clonazepam 0.5 mg tablet 0.5 mg PO BID PRN (Reason: Anxiety) Zepbound 15 mg/0.5 mL pen injector 15 mg SUBCUT TH zolpidem 12.5 mg tablet,ext release multiphase 12.5 mg PO BEDTIME PRN (Reason: Sleep) Discontinued oxycodone 5 mg capsule 5 mg PO TID PRN (Reason: pain) Qty: 9 0RF Rx Instructions: Partial Fill upon patient request. Discharge Orders: Discharge Order (Routine); Ordered 03/31/25 Ordered By: Micheal Perkins Diet: Low fat, low cholesterol Activity on Discharge: No heavy lifting Stand Alone Forms: Patient Portal Discharge page Print Language: Czech Activity Restrictions/Additional Instructions: If the incision area is tender, you may apply an ice pack for short intervals (No more than 20 minutes on, followed by at least 20 minutes off). Do not apply heat. Do not use creams, lotions, or topical antibiotics. These can cause infection or allergic reaction. Ok to shower 48 hours after your surgery. Remove bandaids in 2 days and replace. You have steri strips (small white cloth strips) covering your incision- these will fall off ~1 week. Follow up in office with Dr. Simeon in 2 weeks. ([phone]) No heavy lifting (>10-20lbs) or strenuous activity! Call Your Doctor If: -Your temperature exceeds 101.5? F -You experience excessive pain or swelling -You have an unexpected reaction to medication -You have excessive bleeding -You experience continued vomiting/nausea -Your incision begins to separate -Your incision shows signs of infection such as increased redness, swelling, excessive pain, drainage (light blood or clear fluid is normal) or heat Care Plan Goals: Return to baseline health and resume normal activities following recovery period. Health Concerns: biliary colic Plan of Treatment: s/p laparoscopic cholecystectomy pain control f/u in office in 2 weeks Assessment: Doing well post op. Discharge Date/Time: 03/31/25 09:53
--- NOTE | 2025-03-31 14:13 | HO.POSTANES ---
Post Anesthesia Evaluation Post Anesthesia Evaluation Date of Service: 03/31/25 Vital Signs: Vital Signs Temp Pulse Resp BP Pulse Ox O2 Del Method 03/31/25 07:37 97.6 F 103 H 18 131/88 97 Room Air 03/31/25 03:43 98.2 F 105 H 18 135/63 96 Room Air Anesthesia: General Endotracheal-GETA Mental Status: Awake Pain Control: Satisfactory Nausea/Vomiting: None Hydration: Adequate Anesthesia-Related Issues: No Anes. Related Issues
[2025-03-31 18:23] LABS: Calcium, Ionized 5.0 mg/dL (4.7-5.5)
== END 2025-03-31 09:53 | disposition home or self-care (01) | DRG 263 ==
LOC: HO.ED 21:44 → HO.EDOVER 22:36 → HO.S3 03-29 07:43
PROVIDERS: Internal Medicine; Nurse Practitioner Family; Surgery; Admitting Provider Surgery; Emergency Provider Emergency Medicine Emergency Medical Services; Visit Provider Surgery
PROC: 0FT44ZZ Resection of Gallbladder, Percutaneous Endoscopic Approach (ICD-10-PCS; CPT 47562; principal; 2025-03-30 13:00)
DX: K80.00 Calculus of gallbladder with acute cholecystitis without obstruction (principal); E66.01 Morbid (severe) obesity due to excess calories; F17.210 Nicotine dependence, cigarettes, uncomplicated; Z71.6 Tobacco abuse counseling; Z68.38 Body mass index [BMI] 38.0-38.9, adult; Z79.899 Other long term (current) drug therapy
CPT/HCPCS: 36415; 71045; 74177; 76705; 80048; 80053; 80076; 81003; 82306; 82330; 83605; 83690; 83735; 84100; 85025; 86850; 86900; 86901; 87040; 88304; 93005; 99221; 99285; J0131; J0613; J0665; J1100; J1171; J1650; J1885; J2003; J2270; J2371; J2405; J2470; J2543; J2704; J3010; J3480; Q9967

== ENCOUNTER → 2025-03-28 18:18 | Outpatient (BNV) | payer OTHER, SELFPAY | PROVIDERS: Emergency Provider Emergency Medicine Emergency Medical Services; Visit Provider Specialist | DX: R10.9 Unspecified abdominal pain (principal); R50.9 Fever, unspecified; K80.20 Calculus of gallbladder without cholecystitis without obstruction; R05.9 Cough, unspecified | CPT/HCPCS: 71045; 74177; 76705 ==

== ENCOUNTER → 2025-03-28 18:27 | Outpatient (BNV) | payer OTHER, SELFPAY | PROVIDERS: Admitting Provider Surgery; Emergency Provider Emergency Medicine Emergency Medical Services; Visit Provider Internal Medicine | DX: R00.0 Tachycardia, unspecified (principal) | CPT/HCPCS: 93010 ==

== ENCOUNTER → 2025-03-28 22:24 | Outpatient (BNV) | payer OTHER, SELFPAY | PROVIDERS: Admitting Provider Surgery; Emergency Provider Emergency Medicine Emergency Medical Services; Visit Provider Surgery | DX: K80.50 Calculus of bile duct without cholangitis or cholecystitis without obstruction (principal) | CPT/HCPCS: 99223; 99232 ==

== ENCOUNTER 2025-04-13 15:39 | Emergency (ER) | payer OTHER, SELFPAY ==
[2025-04-13 16:14] VITALS: BP 126/78; PULSE 110; RESP 16; TEMP 36.6; O2SAT 99; BMI 38.4
--- NOTE | 2025-04-13 16:14 | ED_ITS ---
HPI - General Adult General Chief complaint: Abdominal Pain Stated complaint: Gallbladder sx 2 weeks ? infection Time Seen by Provider: 04/13/25 19:06 Source: patient Mode of arrival: ambulatory Limitations: no limitations History of Present Illness ED Provider: Jennifer Soria PA-C HPI narrative: Patient is a 24 year old assigned male at with a history of recent cholesytectomy presenting to the emergency department today with concern about his operative wound. Patient states that 2 weeks ago he had a laproscopic cholecystectomy by Dr. Simeon and was doing OK but he has recently had drainage from a surgical site and he is worried it is infected. Patient denies any dizziness, lightheadedness, abdominal pain, nausea, vomiting, fever, chills, blurry vision, double vision, loss of vision, chest pain, difficulty breathing, shortness of breath, back pain, night sweats, pain with urination, increased urinary frequency, increased urinary urgency, blood in his urine or stool, syncope or a near syncopal episode, recent trauma or falls, bowel incontinence, bladder incontinence, or any other complaints at this time. Relieving factors: none Exacerbating factors: none Associated symptoms: denies other symptoms Related Data Home Medications ?Medication ?Instructions ?Recorded ?Confirmed clonazepam 0.5 mg tablet 0.5 mg PO BID PRN Anxiety 03/29/25 tirzepatide (weight loss) 15 15 mg subcut TH 03/29/25 03/29/25 mg/0.5 mL subcutaneous pen injector (Zepbound) zolpidem 12.5 mg tablet,extended 12.5 mg PO BEDTIME OH N Sleep 03/29/25 03/29/25 release,multiphase Previous Rx's ?Medication ?Instructions ?Recorded ketorolac 10 mg tablet 10 mg PO Q6H PRN pain #20 ta bs 03/23/25 oxycodone-acetaminophen 5 mg-325 1 tab PO Q6H PRN pain (scale score 03/31/25 mg tablet (Percocet) 7-10) #16 tabs cephalexin 500 mg capsule 500 mg PO Q6H 7 days #28 cap s 04/13/25 doxycycline hyclate 100 mg tablet 100 mg PO BID 7 days #14 tabs 04/13/25 Allergies Allergy/AdvReac Type Severity Reaction Status Date / Time No Known Allergies Allergy Verified 04/13/25 16:16 Review of Systems 2 Constitutional: Constitutional: Reports no additional constitutional complaints, Denies chills, Denies fever(s) and Denies night sweats Eyes: Eyes: Reports no additional eye complaints, Denies blurry vision, Denies change in vision, Denies diplopia, Denies eye discharge, Denies loss of vision and Denies eye pain ENT: Denies dizziness Cardiovascular: Cardiovascular: Reports no additional cardiovascular complaints, Denies chest pain, Denies lightheadedness, Denies Loss of Consciousness and Denies dyspnea Respiratory: Respiratory: Reports no additional respiratory complaints and Denies dyspnea Gastrointestinal: Gastrointestinal: Reports no additional gastrointestinal complaints, Denies abdominal pain, Denies melena, Denies hematochezia, Denies change in bowel habits and Denies change in stool character Genitourinary: Genitourinary: Reports no additional male genitourinary complaints, Denies hematuria, Denies oliguria, Denies difficulty urinating, Denies dysuria, Denies urinary frequency, Denies urinary hesitancy, Denies urinary incontinence and Denies urinary urgency Musculoskeletal: Musculoskeletal: Reports no additional musculoskeletal complaints, Denies numbness and Denies tingling Integumentary/Breasts: Comments: post-operative wound infection Neurologic: Denies dizziness, Denies loss of vision, Denies numbness and Denies tingling Psychiatric: Psychiatric: Reports no additional psychiatric complaints Endocrine: Endocrine: Reports no additional endocrine complaints Hematologic/Lymphatic: Hematologic/Lymphatic: Reports no additional hematologic/lymphatic complaints Allergic/Immunologic: Allergic/Immunologic: Reports no additional allergic/immunologic complaints [facility] Past Medical History Attestation statement: The following information was validated with the patient. Source: old records reviewed and nursing notes reviewed Medical History Smoker Anxiety Surgical History Hx of wisdom tooth extraction Social History Social History Household Members: Family Housing: House Are you a primary career representative to a significant other at home: No Do you presently have visiting nurse or other home services: No Patient Tobacco Use Status: Current everyday Tobacco user Tobacco use type: Cigarette e-Cigarette/Vaping Use: Currently Using Second Hand Smoke Exposure: No Advance Directives: No Advance Directives Information Provided: No service: No Physical Exam ED Vital Signs: Vital Signs - 24 hr 04/13/25 16:14 04/13/25 19:10 04/13/25 19:33 Temperature 98 F 98.2 F 98.2 F Pulse Rate 110 H 100 100 Respiratory Rate 16 16 16 Blood Pressure 126/78 128/79 128/79 Pulse Oximetry 99 97 97 Oxygen Delivery Method Room Air Room Air Room Air BMI result Body Mass Index 38.4 Const General: cooperative, no acute distress, alert and awake Nutritional Appearance: well nourished Orientation/consciousness: patient oriented x3 HENMT Head: Yes normal to inspection and Yes atraumatic Ears: hearing grossly normal bilaterally and external ears normal General nose exam: Normal external nose present, no nasal discharge noted and no epistaxis Face and sinus: Yes normal facial exam, No abrasion and No laceration Mouth: Normal oral and palatal mucosa present, no drooling and no muffled voice Eyes General: appearance normal, both eyes and all related structures Periorbital: periorbital findings normal Eyelids: Yes eyelids normal Conjunctivae: conjunctivae normal Pupils: Equal, round and reactive pupils present EOM: EOMs intact bilaterally Neck Neck: Yes normal visual inspection, Yes full ROM and Yes no lymphadenopathy Resp Effort & Inspection: normal respiratory effort and able to speak in complete sentences GI Other: Neuro General: patient oriented x3, moves all extremities and CN's II-XI intact bilaterally Cranial nerves: Yes Equal, round and reactive pupils present Cognition (Neuro): normal cognition Extrem General: Yes normal to inspection, Yes full ROM and Yes capillary refill normal Psych Appearance: grossly normal Mental Status: mental status grossly normal Affect: normal affect Attitude: cooperative Thought process: Normal thought process present Thought content: Normal thought content present Insight: Good insight present (Psych) Course Course Course Narrative: RME performed by Jennifer Soria PA-C. Patient is a 24 year old male presenting to the emergency department with concerns of post operative infection. Patient states he had a gallbladder removal surgery with Dr. Simeon and one of the surgical sites is leaking and painful. Patient states that he has been having chills as well. Detailed physical exam and review of systems are deferred to the baling machine tender. Labs ordered. Patient placed back in the waiting room pending room availability and results. Medications Administered Discontinued Medications Generic Name Dose Route Start Last Admin Trade Name Rosalina PRN Reason Stop Dose Admin Cephalexin HCl 500 mg 04/13/25 19:16 04/13/25 19:31 Cephalexin 500 Mg Capsule PO 04/13/25 19:17 500 mg ONCE ONE Administration Doxycycline Monohydrate 100 mg 04/13/25 19:16 04/13/25 19:31 Doxycycline Monohydrate 100 Mg Capsule PO 04/13/25 19:17 100 mg ONCE ONE Administration Medical Decision Making Medical Decision Making [facility] Narrative: Patient is a 24 year old assigned male at with a history of recent cholesytectomy presenting to the emergency department today with concern about his operative wound. Patient's physical exam was as noted in the physical exam portion of this note. Patient's blood work showed a CRP of 0.64 but otherwise unremarkable. I spoke with Dr. Simeon who recommended having the patient follow up in the office and stated the patient did not need additional work up or imaging while in the emergency department. Patient's clinical presentation is most consistent with a post-operative wound cellulitis - therefore patient will be prescribed doxycycline + keflex. I explained my physical exam findings as well as all test results to the patient. I answered all questions asked by the patient. I stressed the importance of the patient taking his medication as directed (either prescribed or as the over the counter packaging recommends). I stressed the importance of the patient following up with his primary care provider and with Dr. Simeon. I stressed the importance of the patient returning to the emergency department immediately if his symptoms were to worsen or if he were to develop any dizziness, shortness of breath, difficulty breathing, chest pain, blurry vision, loss of vision, nausea, vomiting, abdominal pain, fever, chills, back pain, or any other complaints. Patient verbalized agreement and understanding with this treatment plan and discharge. Differential Diagnosis Differential Diagnoses: The differential diagnosis associated with the presentation includes Post-operative wound infection Cellulitis Admission/Observation Consideration of admission/observation: Escalation of care including admission/observation considered Patient would have been admitted to the hospital had his work up had any findings where hospital admission was appropriate and his clinical presentation warranted hospital admission. Consult Healthcare Provider Management of the patient was discussed with: Gui Developer (spoke with Dr. Simeon as noted in the MDM Rationale portion of this note. ) Lab Data [facility] Lab Attestation statement: I reviewed the patient's lab results. My interpretation of these results are in the MDM Rationale portion of this note. 04/13/25 17:55 04/13/25 17:55 Labs: Lab Results 04/13/25 Range/Units 17:55 WBC 10.0 (4.8-10.8) X10*3/uL RBC 5.53 (4.60-5.80) X10*6/uL Hgb 13.7 L (14.0-18.0) g/dl Hct 44.3 (42.0-52.0) % MCV 80.1 (80.0-98.0) fL MCH 24.8 L (27.0-33.0) pg MCHC 30.9 L (31.0-36.0) g/dl RDW 14.6 (11.0-16.0) % Plt Count 389 D (160-400) X10*3/uL MPV 8.8 L (9.4-12.4) fL Immature Gran % (Auto) 0.3 (0.0-0.4) % Neut % (Auto) 65.4 (45-73) % Lymph % (Auto) 24.1 (20-40) % [place] % (Auto) 7.8 (2-11) % Eos % (Auto) 2.1 (0-4) % Baso % (Auto) 0.3 (0-2) % Lymph # (Auto) 2.4 (1.2-4.9) X10*3/uL [place] # (Auto) 0.8 (0.1-1.2) X10*3/uL Eos # (Auto) 0.2 (0.0-0.4) X10*3/uL Baso # (Auto) 0.0 (0.0-0.2) X10*3/uL Abs Immat Gran (auto) 0.03 (0.00-0.03) X10*3/uL Absolute Neuts (auto) 6.5 (2.0-8.3) x10*3/uL Absolute Nucleated RBC 0.000 (0.0-0.012) X10*3/uL Nucleated RBC % (auto) 0.0 (0.0-0.2) /100WBC ESR 14 (0-15) MM/HR Sodium 145 (135-145) mmol/L Potassium 4.3 (3.3-5.1) mmol/L Chloride 110 H (96-108) mmol/L Carbon Dioxide 27 (22-29) mmol/L Anion Gap 12 (12-20) BUN 9 (9-16) mg/dL Creatinine 0.63 (0.5-1.4) mg/dL Estim Creat Clear Calc 231.0 Estimated GFR > 60 Random Glucose 98 (60-115) mg/dL Calcium 9.5 D (8.4-10.2) mg/dL Total Bilirubin 0.3 (0.0-1.0) mg/dL AST 34 (5-37) U/L ALT 60 H (0-40) U/L Alkaline Phosphatase 96 (39-117) U/L C-Reactive Protein 0.64 H (< or = 0.50) mg/dL Total Protein 7.3 (6.5-8.0) g/dL Albumin 4.4 (3.5-5.0) g/dL Prescription Management I considered prescription management with: Antibiotic (patient prescribed antibiotics for post-operative cellulitis as noted in the MDM Rationale portion of this note. ) Discharge Plan Discharge Clinical Impression: Post op infection Patient Disposition: Home, Self-Care Instructions: Wound Infection (DC) Additional Instructions: Dr. Simeon would like you to follow up in the office - please be sure to call them tomorrow (04/14/2025) and get an appointment scheduled. Take your antibiotic as prescribed. Follow up with a primary care provider. Return to the emergency department immediately if your symptoms worsen or if you develop any numbness, tingling, dizziness, shortness of breath, difficulty breathing, chest pain, blurry vision, loss of vision, nausea, vomiting, abdominal pain, fever, chills, back pain, or any other complaints. L If you do not have a primary care provider - call any of the below numbers to establish and follow up with a primary care provider. [facility] ([place]) [phone] [place] [address], [address] [facility] ([address] [place]) [phone] [place] [address], [address] [facility], [address] [facility] ([address] [place]) [phone] [place] [address], [address] [facility], [address] [facility] (Jayme Garcia) [phone] [place] [address], [address] Jayme Cooper [facility], [address] [facility] [phone] [place] [address], [id number] Please see the information below about our Patient Portal. If you are not yet enrolled in the [facility] Patient Portal, you will receive an enrollment email invitation following your visit to any [facility] setting. You may also self-enroll in the Patient Portal by visiting our website: [email or web address] The following information is required to access the Patient Portal: - Your [facility] Medical Record Number - Your personal home email address (must match what is in your electronic medical record, Registration staff can assist with this) - Name - Date of Capabilities of the Patient Portal: - Message some providers - View upcoming appointments - Access your health summary, medical history, and visit history - View current conditions and allergies - View procedure and lab results - View your medications, including guidelines, side effects, and precautions - Complete pre-appointment questionnaires requested by your provider - Ready summary reports of your office visits and procedures To access the Patient Portal Mobile [employer], follow these directions: - Search Easy[employer] in the [employer] Store or [employer] Store - Download the [employer] - Search for [facility] - Enter your login/password Prescriptions: New cephalexin 500 mg capsule 500 mg PO Q6H 7 Days Qty: 28 0RF doxycycline hyclate 100 mg tablet 100 mg PO BID 7 Days Qty: 14 0RF No Action ketorolac 10 mg tablet 10 mg PO Q6H PRN (Reason: pain) Qty: 20 0RF Rx Instructions: Patient received 30mg IM Ketorolac in the ED. clonazepam 0.5 mg tablet 0.5 mg PO BID PRN (Reason: Anxiety) Zepbound 15 mg/0.5 mL pen injector 15 mg SUBCUT TH zolpidem 12.5 mg tablet,ext release multiphase 12.5 mg PO BEDTIME PRN (Reason: Sleep) oxycodone-acetaminophen [Percocet] 5-325 mg tablet 1 tab PO Q6H PRN (Reason: pain (scale score 7-10)) Qty: 16 0RF Rx Instructions: Partial Fill upon patient request. Stand Alone Forms: Work/School Release Interventions: ED Discharge Assessment Last Done: 04/13/25 19:33 Discharge Date/Time: 04/13/25 19:34 Print Language: Australian
[2025-04-13 18:00] LABS: MANUAL DIFF FLAG NO
[2025-04-13 18:08] LABS: Hematocrit 44.3 % (42.0-52.0); Hemoglobin 13.7 g/dl (14.0-18.0); Imm Gran Abs Auto 0.03 X10*3/uL (0.00-0.03); Imm Gran Pct Auto 0.3 % (0.0-0.4); Lymphocytes Absolute Auto 2.4 X10*3/uL (1.2-4.9); Mean Corpuscular HGB Conc 30.9 g/dl (31.0-36.0); Mean Corpuscular Hemoglobin 24.8 pg (27.0-33.0); Mean Corpuscular Volume 80.1 fL (80.0-98.0); NRBC Abs Auto 0.000 X10*3/uL (0.0-0.012); NRBC Pct Auto 0.0 /100WBC (0.0-0.2); Platelet Count 389 X10*3/uL (160-400); Red Blood Count 5.53 X10*6/uL (4.60-5.80); White Blood Count 10.0 X10*3/uL (4.8-10.8)
[2025-04-13 18:16] LABS: Alanine Aminotransferase 60 U/L (0-40); Albumin Level 4.4 g/dL (3.5-5.0); Alkaline Phosphatase 96 U/L (39-117); Anion Gap 12 (12-20); Aspartate Amino Transferase 34 U/L (5-37); Blood Urea Nitrogen 9 mg/dL (9-16); Calcium 9.5 mg/dL (8.4-10.2); Carbon Dioxide 27 mmol/L (22-29); Chloride 110 mmol/L (96-108); Creatinine Clr Calc Pharmacy 231.0; Estimated Glomerular Filt Rate > 60; Potassium 4.3 mmol/L (3.3-5.1); Sodium 145 mmol/L (135-145); Total Protein 7.3 g/dL (6.5-8.0)
[2025-04-13 19:10] VITALS: BP 128/79; PULSE 100; RESP 16; TEMP 36.8; O2SAT 97
[2025-04-13 19:33] VITALS: BP 128/79; PULSE 100; RESP 16; TEMP 36.8; O2SAT 97
== END 2025-04-13 19:34 | disposition home or self-care (01) ==
PROVIDERS: Physician Assistant Medical; Emergency Provider Emergency Medicine
DX: T81.40XA Infection following a procedure, unspecified, initial encounter (principal); L08.9 Local infection of the skin and subcutaneous tissue, unspecified; Y92.9 Unspecified place or not applicable; Z90.49 Acquired absence of other specified parts of digestive tract; Z79.899 Other long term (current) drug therapy
CPT/HCPCS: 36415; 80053; 85025; 85652; 86140; 99283

== ENCOUNTER 2025-04-16 20:23 | Emergency (ER) | payer OTHER, SELFPAY ==
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
[2025-04-16 20:24] VITALS: BP 116/67; PULSE 115; RESP 20; TEMP 36.9; O2SAT 96; BMI 36.4
--- NOTE | 2025-04-16 20:31 | ED_ITS ---
HPI - General Adult General Chief complaint: Abdominal Pain Stated complaint: upper abd pain, fatigued Time Seen by Provider: 04/16/25 22:18 Source: patient Mode of arrival: ambulatory Limitations: no limitations History of Present Illness ED Provider: HPI narrative: Patient is status post laparoscopic cholecystectomy in 03/30 since surgery patient has been having diffuse abdominal pain right side where the surgery was done no nausea no vomiting no fever no chills Related Data Home Medications ?Medication ?Instructions ?Recorded ?Confirmed clonazepam 0.5 mg tablet 0.5 mg PO BID PRN Anxiety 03/29/25 tirzepatide (weight loss) 15 15 mg subcut TH 03/29/25 03/29/25 mg/0.5 mL subcutaneous pen injector (Zepbound) zolpidem 12.5 mg tablet,extended 12.5 mg PO BEDTIME HI N Sleep 03/29/25 03/29/25 release,multiphase Previous Rx's ?Medication ?Instructions ?Recorded ketorolac 10 mg tablet 10 mg PO Q6H PRN pain #20 ta bs 03/23/25 oxycodone-acetaminophen 5 mg-325 1 tab PO Q6H PRN pain (scale score 03/31/25 mg tablet (Percocet) 7-10) #16 tabs cephalexin 500 mg capsule 500 mg PO Q6H 7 days #28 cap s 04/13/25 doxycycline hyclate 100 mg tablet 100 mg PO BID 7 days #14 tabs 04/13/25 Allergies Allergy/AdvReac Type Severity Reaction Status Date / Time No Known Allergies Allergy Verified 04/16/25 20:27 Review of Systems 2 Review of Systems: Yes all other systems are reviewed and are negative PMFSH Past Medical History Medical History Smoker Anxiety Surgical History Hx of wisdom tooth extraction Social History Social History Household Members: Family Housing: House Are you a primary rn progressive care unit to a significant other at home: No Do you presently have visiting nurse or other home services: No Patient Tobacco Use Status: Current everyday Tobacco user Tobacco use type: Cigarette Smoked in Last 30 Days: No e-Cigarette/Vaping Use: Currently Using Second Hand Smoke Exposure: No Use of substances other than those prescribed or required for medical reasons: No Advance Directives: No Advance Directives Information Provided: No Do you have a plan to hurt others: No Plan service: No Physical Exam ED Exam Exam: Appearance: Alert. Oriented X3. No acute distress. Eyes: PERRLA, No Nystagmus ENT: Pharynx normal. Oral Mucosa moist Neck: Normal inspection. Neck supple. CVS: Normal heart rate and rhythm. Pulses normal. Respiratory: No respiratory distress. Equal air entry bilateral, no wheezing/rales/rhonchi Abdomen: Soft and mild diffuse tenderness right side no focal tenderness small umbilical hernia with tenderness surgical wounds healthy. Bowel sounds are present, no mass palpable, no CVA tenderness Skin: Skin warm and dry. Normal skin color. Normal skin turgor. Extremities: No lower extremity edema. No calf tenderness Neuro: Oriented X 3. No motor deficit. No sensory deficit.No cerebellar signs , cranial nerves II-XII intact Vital Signs: Vital Signs - 24 hr 04/16/25 20:24 04/16/25 20:51 04/17/25 00:02 Temperature 98.5 F 99.1 F 99.1 F Pulse Rate 115 H 108 H 103 H Respiratory Rate 20 Blood Pressure 116/67 104/65 90/63 Pulse Oximetry 96 95 97 Oxygen Delivery Method Room Air Room Air Room Air BMI result Body Mass Index 36.4 Course Course Course Narrative: This is a rapid medical exam performed by Sadia Díaz NP: Additional HPI, ROS, PE not included below will be deferred to primary provider. Patient is a 24-year-old male status post cholecystectomy with Dr. Simeon on 03/30/2025 presenting to the emergency department with complaint of ongoing abdominal pain and concern for infection around 1 incision site above his umbilicus. States the area to the right of the incision is firm. States he does not feel ready to return to work at a [employer]. Denies fevers. Seen here on 04/13, d/c'd on doxy and keflec, and compared to photo in chart, wound appears to be healing well at this time. Plan: basic labs Medical Decision Making Medical Decision Making MDM Narrative: Patient with nonspecific abdominal pain after laparoscopic cholecystectomy lab workup showed normal leukocyte count CT scan without any fluid collection as small amount of periumbilical hernia patient does not have much tenderness in that area patient is supposed to follow up with surgeon. Will discharge patient home Lab Data MDM Lab Attestation statement: I reviewed the patient's lab results. 04/16/25 20:41 04/16/25 20:41 Labs: Lab Results 04/16/25 04/16/25 Range/Units 20:41 20:57 WBC 9.3 (4.8-10.8) X10*3/uL RBC 5.57 (4.60-5.80) X10*6/uL Hgb 14.1 (14.0-18.0) g/dl Hct 44.3 (42.0-52.0) % MCV 79.5 L (80.0-98.0) fL MCH 25.3 L (27.0-33.0) pg MCHC 31.8 (31.0-36.0) g/dl RDW 14.8 (11.0-16.0) % Plt Count 380 (160-400) X10*3/uL MPV 8.7 L (9.4-12.4) fL Immature Gran % (Auto) 0.2 (0.0-0.4) % Neut % (Auto) 59.5 (45-73) % Lymph % (Auto) 28.3 (20-40) % [place] % (Auto) 8.9 (2-11) % Eos % (Auto) 2.9 (0-4) % Baso % (Auto) 0.2 (0-2) % Lymph # (Auto) 2.6 (1.2-4.9) X10*3/uL [place] # (Auto) 0.8 (0.1-1.2) X10*3/uL Eos # (Auto) 0.3 (0.0-0.4) X10*3/uL Baso # (Auto) 0.0 (0.0-0.2) X10*3/uL Abs Immat Gran (auto) 0.02 (0.00-0.03) X10*3/uL Absolute Neuts (auto) 5.5 (2.0-8.3) x10*3/uL Absolute Nucleated RBC 0.000 (0.0-0.012) X10*3/uL Nucleated RBC % (auto) 0.0 (0.0-0.2) /100WBC Sodium 143 (135-145) mmol/L Potassium 3.9 (3.3-5.1) mmol/L Chloride 110 H (96-108) mmol/L Carbon Dioxide 24 (22-29) mmol/L Anion Gap 13 (12-20) BUN 16 (9-16) mg/dL Creatinine 0.65 (0.5-1.4) mg/dL Estim Creat Clear Calc 217.7 Estimated GFR > 60 Random Glucose 112 (60-115) mg/dL Calcium 9.3 (8.4-10.2) mg/dL Total Bilirubin 0.4 (0.0-1.0) mg/dL AST 54 H (5-37) U/L ALT 146 H (0-40) U/L Alkaline Phosphatase 101 (39-117) U/L Total Protein 7.3 (6.5-8.0) g/dL Albumin 4.5 (3.5-5.0) g/dL Urine Color Dark Yellow Urine Appearance Clear Urine pH 6.0 (5.0-9.0) Ur Specific [place] >= 1.030 H (1.005-1.025) Urine Protein Trace (Neg-Trace) mg/dL Urine Glucose (UA) Negative (Negative) mg/dL Urine Ketones Trace (Negative) mg/dL Urine Blood Negative (Negative) Urine Nitrite Negative (Negative) Ur Leukocyte Esterase Negative (Negative) Urine RBC 0-2 (0-2) /HPF Urine WBC 0-5 (0-5) /HPF Ur Squamous Epith Cells 0-2 (0-2) /HPF Urine Bacteria None Seen (None Seen) Hyaline Casts 3-5 (0-2) /LPF Independent Interpretation I performed an independent interpretation of an: CT Scan Radiology Impression Discussion of test interpretation with radiology: I have reviewed the radiologist's reading. Discharge Plan Discharge Clinical Impression: S/P laparoscopic cholecystectomy, Abdominal pain Patient Disposition: Home, Self-Care Instructions: Abdominal Pain (ED) Additional Instructions: Cause of pain in abdomen is not clear likely from postsurgical changes Take ibuprofen for pain and follow up with your surgeon Prescriptions: No Action cephalexin 500 mg capsule 500 mg PO Q6H 7 Days Qty: 28 0RF doxycycline hyclate 100 mg tablet 100 mg PO BID 7 Days Qty: 14 0RF ketorolac 10 mg tablet 10 mg PO Q6H PRN (Reason: pain) Qty: 20 0RF Rx Instructions: Patient received 30mg IM Ketorolac in the ED. clonazepam 0.5 mg tablet 0.5 mg PO BID PRN (Reason: Anxiety) Zepbound 15 mg/0.5 mL pen injector 15 mg SUBCUT TH zolpidem 12.5 mg tablet,ext release multiphase 12.5 mg PO BEDTIME PRN (Reason: Sleep) oxycodone-acetaminophen [Percocet] 5-325 mg tablet 1 tab PO Q6H PRN (Reason: pain (scale score 7-10)) Qty: 16 0RF Rx Instructions: Partial Fill upon patient request. Print Language: Singaporean
[2025-04-16 20:51] VITALS: BP 104/65; PULSE 108; TEMP 37.3; O2SAT 95
[2025-04-16 20:52] LABS: MANUAL DIFF FLAG NO
[2025-04-16 20:54] LABS: Hematocrit 44.3 % (42.0-52.0); Hemoglobin 14.1 g/dl (14.0-18.0); Imm Gran Abs Auto 0.02 X10*3/uL (0.00-0.03); Imm Gran Pct Auto 0.2 % (0.0-0.4); Lymphocytes Absolute Auto 2.6 X10*3/uL (1.2-4.9); Mean Corpuscular HGB Conc 31.8 g/dl (31.0-36.0); Mean Corpuscular Hemoglobin 25.3 pg (27.0-33.0); Mean Corpuscular Volume 79.5 fL (80.0-98.0); NRBC Abs Auto 0.000 X10*3/uL (0.0-0.012); NRBC Pct Auto 0.0 /100WBC (0.0-0.2); Platelet Count 380 X10*3/uL (160-400); Red Blood Count 5.57 X10*6/uL (4.60-5.80); White Blood Count 9.3 X10*3/uL (4.8-10.8)
[2025-04-16 21:03] LABS: Appearance Urine Clear; Glucose Urine UA Negative (Negative); PH 6.0 (5.0-9.0); Specific Gravity - Urine >= 1.030 (1.005-1.025)
[2025-04-16 21:09] LABS: Alanine Aminotransferase 146 U/L (0-40); Albumin Level 4.5 g/dL (3.5-5.0); Alkaline Phosphatase 101 U/L (39-117); Anion Gap 13 (12-20); Aspartate Amino Transferase 54 U/L (5-37); Blood Urea Nitrogen 16 mg/dL (9-16); Calcium 9.3 mg/dL (8.4-10.2); Carbon Dioxide 24 mmol/L (22-29); Chloride 110 mmol/L (96-108); Creatinine Clr Calc Pharmacy 217.7; Estimated Glomerular Filt Rate > 60; Potassium 3.9 mmol/L (3.3-5.1); Sodium 143 mmol/L (135-145); Total Protein 7.3 g/dL (6.5-8.0)
[2025-04-17 00:02] VITALS: BP 90/63; PULSE 103; TEMP 37.3; O2SAT 97
[2025-04-17 02:28] VITALS: BP 94/59; PULSE 94; RESP 16; TEMP 37.1; O2SAT 98
[2025-04-17 02:56] VITALS: BP 94/59; PULSE 94; RESP 16; TEMP 37.1; O2SAT 98
== END 2025-04-17 02:30 | disposition home or self-care (01) ==
PROVIDERS: Registered Nurse Emergency; Emergency Provider Internal Medicine
DX: G89.18 Other acute postprocedural pain (principal); R10.2 Pelvic and perineal pain; Z79.899 Other long term (current) drug therapy
CPT/HCPCS: 36415; 74176; 80053; 81001; 85025; 99284

== ENCOUNTER → 2025-04-16 23:01 | Outpatient (BNV) | payer OTHER, SELFPAY | PROVIDERS: Emergency Provider Internal Medicine; Visit Provider Radiology Diagnostic Radiology | DX: K42.9 Umbilical hernia without obstruction or gangrene (principal) | CPT/HCPCS: 74176 ==

== ENCOUNTER 2025-05-04 13:03 | Outpatient (AMB) | payer OTHER, SELFPAY ==
--- NOTE | 2025-05-04 13:05 | A.OFFVIS_ITS ---
Vital Signs 05/04/25 13:16 Height 5 ft 9 in Weight 243 lb BMI 35.9 BP 106/58 L Blood Pressure Location Lt brachial Position Sitting Pulse 102 H Intake Visit Reasons: Gallstones Intake Note: Patient seen at [facility] ED for abdominal pain. S/p lap ruben 03-30-2025. Patient c/o: feels well. Incisions healed well. Denies nausea, constipation. Completed Cephalexin, Doxycycline course. Hand Weaver Required: No Accompanied by: Self / Same As Patient Allergies No Known Allergies Allergy (Verified 05/04/25 13:14) HPI HPI Gallstones: Details: 24-year-old male here for a postop visit. He underwent laparoscopic cholecystectomy as an inpatient last 03/30/2025. He was discharged on postop day 1. He says he is doing well overall. He denies any significant GI complaints. PFSH Medical History Smoker Anxiety Surgical History Hx of wisdom tooth extraction Social History Household Members: Family Housing: House Are you a primary out of school hours care worker to a significant other at home: No Do you presently have visiting nurse or other home services: No Patient Tobacco Use Status: Current everyday Tobacco user Tobacco use type: Cigarette e-Cigarette/Vaping Use: Currently Using Second Hand Smoke Exposure: No service: No Review of Systems Const Denies chills and Denies fever(s) Card Denies chest pain Resp Denies cough GI Denies abdominal pain and Denies vomiting Physical Exam Const General: comfortable and no acute distress Eyes Other: Anicteric sclerae Resp Effort & Inspection: normal respiratory effort GI Other: All incisions are well healed Palpation (GI): Soft to palpation, not firm, nontender and no guarding Assessment & Plan Assessment & Plan (1) S/P laparoscopic cholecystectomy: Code(s): Z90.49 - Acquired absence of other specified parts of digestive tract Category: Surgical Plan: He is doing well postop after laparoscopic cholecystectomy for acute cholecystitis. All incisions are well healed. He can resume regular level of activities. He can follow up on a p.r.n. basis. Medications: Discontinued oxycodone-acetaminophen 5-325 mg (Percocet) Partial Fill upon patient request. Discontinued Reason: Patient Completed Course 1 tab PO Q6H PRN 16 tabs 0RF pain (scale score 7-10) cephalexin Discontinued Reason: Patient Completed Course 500 mg PO Q6H 7 days 28 caps 0RF doxycycline hyclate Discontinued Reason: Patient Completed Course 100 mg PO BID 7 days 14 tabs 0RF Coding Level of Care Code Global (79329) Diagnoses S/P laparoscopic cholecystectomy Z90.49
[2025-05-04 13:16] VITALS: BP 106/58; PULSE 102; BMI 35.9
== END 2025-05-04 13:19 | disposition home or self-care (01) ==
LOC: HO.HGS 13:04
PROVIDERS: Visit Provider Surgery
DX: Z90.49 Acquired absence of other specified parts of digestive tract (principal)
CPT/HCPCS: 99024

== ENCOUNTER → 2025-05-04 13:03 | Outpatient (BNVA) | payer OTHER, SELFPAY | PROVIDERS: Visit Provider Surgery | DX: Z90.49 Acquired absence of other specified parts of digestive tract (principal); Z98.890 Other specified postprocedural states | CPT/HCPCS: 99212 ==

== ENCOUNTER 2025-05-12 13:39 | Emergency (ER) | payer OTHER, SELFPAY ==
[2025-05-12] VITALS (9 sets, daily range): BP systolic 108–131; BP diastolic 50–67; PULSE 61–103; RESP 16–19; TEMP 36.6–36.8; O2SAT 94–98; BMI 35.2
--- NOTE | ~2025-05-12 | CT_ITS ---
EXAMINATION: CT HIP WITH CONTRAST, RIGHT CLINICAL INFORMATION: Abscess/swelling/pain/fever. COMPARISON: None available. TECHNIQUE: Contiguous axial images through the right hip using 2 mm collimation with bone and soft tissue algorithm. Sagittal and coronal reformatted images acquired. DLP: [address] examination was performed using dose optimization techniques as appropriate, variously including the following: *Automated exposure control *Adjustment of mA and/or kV according to patient size (this includes techniques or standardized protocols for targeted exams where dose is matched to indication/reason for exam; i.e. extremities or head) *Use of iterative reconstruction technique FINDINGS: The anterior and posterior columns of the acetabulum are intact. The femoral head is well-seated in the right acetabulum. There is no gross joint effusion, right coxofemoral joint. The femoral head neck intertrochanteric region and proximal diaphysis are intact without periosteal bone reaction. No lytic or blastic lesions. No volume loss in the right femoral head. Probable small bony island in right femoral head. There is asymmetric skin thickening in the lateral right hip with edema pattern in the fat planes. No fluid collection. There is a 2 cm right inguinal lymph node. The muscles demonstrated no gross volume loss or soft tissue fullness. There is no right inguinal hernia. . CT/CT hip RT w IV con IMPRESSION: No abscess. No joint effusion, right coxofemoral joint. No acute fracture or dislocation. Skin thickening probable cellulitis. Electronically signed by: Giovanni Krishnan MD 05/12/2025 03:44 PM EDT
--- NOTE | 2025-05-12 13:41 | ED_ITS ---
HPI - General Adult General Chief complaint: General Medical Stated complaint: Infected spider bite Time Seen by Provider: 05/12/25 14:30 Source: patient Mode of arrival: ambulatory Limitations: no limitations History of Present Illness ED Provider: ASAF HPI narrative: 24 yo male with no sig PMH does have hx of boils in the past he notes about last Sunday he started with R hip redness/boil it was okay but then suddenly prior to the weekend it grew in size and started to cause more pain. He has had nausea/vomiting and chills. He notes it had a black top on it Sunday and then he thinks it started to drain Sunday. He woke up and saw purulence. He has no known hx of diagnosed MRSA. He reports he came today given increased chills, nausea, not improving. He has not taken any meds for it. He never saw a spider. MD complaint: abscess Onset (ago): week(s) (1) Location: right Radiation: non-radiation Severity: moderate Quality: aching Pain Consistency: constant Relieving factors: immobilization Exacerbating factors: other (palpation) Associated symptoms: fever/chills and nausea/vomiting Treatments prior to arrival: none Related Data Home Medications ?Medication ?Instructions ?Recorded ?Confirmed clonazepam 0.5 mg tablet 0.5 mg PO BID PRN Anxiety 03/29/25 tirzepatide (weight loss) 15 15 mg subcut TH 03/29/25 03/29/25 mg/0.5 mL subcutaneous pen injector (Zepbound) zolpidem 12.5 mg tablet,extended 12.5 mg PO BEDTIME ND N Sleep 03/29/25 03/29/25 release,multiphase Previous Rx's ?Medication ?Instructions ?Recorded ketorolac 10 mg tablet 10 mg PO Q6H PRN pain #20 ta bs 03/23/25 cephalexin 500 mg capsule 500 mg PO QID 7 days #28 cap s 05/12/25 doxycycline hyclate 100 mg capsule 100 mg PO BID 7 day s #14 caps 05/12/25 Allergies Allergy/AdvReac Type Severity Reaction Status Date / Time No Known Allergies Allergy Verified 05/12/25 13:44 Review of Systems 2 Review of Systems: Constitutional : No Fever, pos Chills ENT/Mouth : No sore throat, No Rhinorrhea Eyes: No Eye Pain, No Swelling, No Redness Cardiovascular : No Chest Pain, No SOB Respiratory : No Cough, No Sputum Gastrointestinal : pos Nausea,pos Vomiting, No Diarrhea, No abdominal Pain Genitourinary : No Dysuria, No Hematuria Musculoskeletal : No joint pain, No Myalgias, No Joint Swelling Skin : No Skin Lesions, positive skin rash Neuro : No Weakness, No Numbness, No Headache Psych : No Anxiety, No Depression Heme/Lymph: No Bruising, No Bleeding,No Lymphadenopathy Endocrine : No Polyuria, No Polydipsia All other systems reviewed and are negative [facility] Past Medical History Attestation statement: The following information was validated with the patient. Source: old records reviewed Medical History Smoker Anxiety Surgical History Hx of wisdom tooth extraction Social History Social History Household Members: Family Housing: House Are you a primary healthcare market consultant to a significant other at home: No Do you presently have visiting nurse or other home services: No Alcohol intake: current Alcohol intake frequency: holidays/special occasions only Patient Tobacco Use Status: Current everyday Tobacco user Tobacco use type: Cigarette Smoked in Last 30 Days: Yes e-Cigarette/Vaping Use: Currently Using Second Hand Smoke Exposure: No Use of substances other than those prescribed or required for medical reasons: Yes Substance Use Type: Marijuana Substance Use Frequency: Chronic Longstanding Last Used Substance: Hours (ago) Advance Directives: No Advance Directives Information Provided: No Do you have a plan to hurt others: No Plan service: No Physical Exam ED Vital Signs: Vital Signs - 24 hr 05/12/25 13:42 05/12/25 14:59 05/12/25 15:18 Temperature 98.3 F 98.1 F 97.9 F Pulse Rate 103 H 87 83 Respiratory Rate 16 16 16 Blood Pressure 131/67 112/64 124/51 L Pulse Oximetry 96 94 96 Oxygen Delivery Method Room Air Room Air Room Air 05/12/25 15:30 05/12/25 16:34 Temperature Pulse Rate 83 64 Respiratory Rate 19 Blood Pressure 125/50 L 118/55 L Pulse Oximetry 98 96 Oxygen Delivery Method Room Air Room Air BMI result Body Mass Index 35.2 Appearance: Alert. Oriented X3. No acute distress. Eyes: Pupils equal, round and reactive to light. ENT: Pharynx normal. Neck: Normal inspection. Neck supple. CVS: tachycardic heart rate and rhythm. Pulses normal. Respiratory: No respiratory distress. Breath sounds normal. Abdomen: Soft and nontender. R hip area: redness and warmth with open draining wound that has purulence I do not feel fluctuance anymore and cannot express any more purulence but skin is indurated Skin: Skin warm and dry. Normal skin color. Extremities: No lower extremity edema. No calf ttp Neuro: Oriented X 3. No motor deficit. No sensory deficit. Course Course Course Narrative: Rapid medical examination performed in triage by Jennifer Soria PA-C. Patient is a 24 year old male presenting to the emergency department with right buttock / thigh abscess. Patient states that he is concerned he was bit by a spider because he has a pimp on the right buttock / thigh that is now oozing. Detailed physical exam and review of systems are deferred to the primary operator. Patient placed back in the waiting room pending room availability. Medications Administered Discontinued Medications Generic Name Dose Route Start Last Admin Trade Name Freq PRN Reason Stop Dose Admin Sodium Chloride 3,240 mls @ 3,240 mls/hr 05/12/25 14:25 05/12/25 15:41 Ns 30 ml/kg infuse over 1 hr (3240 ml) 05/12/25 15:24 Infused IV Infusion .Q1H STA Piperacillin Sod/Tazobactam 50 mls @ 100 mls/hr 05/12/25 14:28 05/12/25 15:12 Sod 3.375 gm/ Sodium Chloride IV 05/12/25 14:57 Infused ONCE ONE Infusion Vancomycin HCl 2,000 mg in 500 mls @ 250 mls/hr 05/12/25 14:28 05/12/25 14:56 Vancomycin/Ns IV 05/12/25 16:27 250 mls/hr ONCE ONE Administration Lactated Ringer's 1,000 mls @ 999 mls/hr 05/12/25 14:28 05/12/25 16:30 Lr IV 05/12/25 15:28 999 mls/hr .Q1H1M ONE Administration Iohexol 100 ml 05/12/25 15:23 05/12/25 15:23 Iohexol 350 Mg/Ml 100 Ml Infus..Btl IV 05/12/25 15:24 85 ml ONCE ONE Administration Ketorolac Tromethamine 15 mg 05/12/25 14:28 05/12/25 14:41 Ketorolac Tromethamine 15 Mg/Ml Vial IVPUSH 05/12/25 14:29 15 mg ONCE ONE Administration Morphine Sulfate 4 mg 05/12/25 14:28 05/12/25 14:41 Morphine Sulfate 4 Mg/Ml Cartridge IVPUSH 05/12/25 14:29 4 mg ONCE ONE Administration Protocol Ondansetron HCl 4 mg 05/12/25 14:28 05/12/25 14:41 Ondansetron Hcl 4 Mg/2 Ml Vial IVPUSH 05/12/25 14:29 4 mg ONCE ONE Administration Medical Decision Making Medical Decision Making [facility] Narrative: 24 yo male with no sig PMH but has hx of boils not confirmed as MRSA _ he comes in with chills and n/v since boil x 1 week that will not heal at this time IVF ordered, IV zosyn and vancomycin I do believe clinically that it is drained but I am ordered CT scan for deeper space infection. Differential Diagnosis Differential Diagnoses: The differential diagnosis associated with the presentation includes cellulitis, abscess Admission/Observation Consideration of admission/observation: Escalation of care including admission/observation considered symptoms improved looks well no lactic acid neg wbc count can be DC on oral medications Lab Data [facility] Lab Attestation statement: I reviewed the patient's lab results. 05/12/25 14:25 05/12/25 14:25 Labs: Lab Results 05/12/25 Range/Units 14:25 WBC 10.0 (4.8-10.8) X10*3/uL RBC 5.45 (4.60-5.80) X10*6/uL Hgb 13.8 L (14.0-18.0) g/dl Hct 43.7 (42.0-52.0) % MCV 80.2 (80.0-98.0) fL MCH 25.3 L (27.0-33.0) pg MCHC 31.6 (31.0-36.0) g/dl RDW 14.6 (11.0-16.0) % Plt Count 335 (160-400) X10*3/uL MPV 8.8 L (9.4-12.4) fL Immature Gran % (Auto) 0.4 (0.0-0.4) % Neut % (Auto) 75.4 H (45-73) % Lymph % (Auto) 18.2 L (20-40) % [place] % (Auto) 4.8 (2-11) % Eos % (Auto) 1.0 (0-4) % Baso % (Auto) 0.2 (0-2) % Lymph # (Auto) 1.8 (1.2-4.9) X10*3/uL [place] # (Auto) 0.5 (0.1-1.2) X10*3/uL Eos # (Auto) 0.1 (0.0-0.4) X10*3/uL Baso # (Auto) 0.0 (0.0-0.2) X10*3/uL Abs Immat Gran (auto) 0.04 H (0.00-0.03) X10*3/uL Absolute Neuts (auto) 7.5 (2.0-8.3) x10*3/uL Absolute Nucleated RBC 0.000 (0.0-0.012) X10*3/uL Nucleated RBC % (auto) 0.0 (0.0-0.2) /100WBC PT 12.9 H (10.9-12.4) SEC INR 1.1 (0.9-1.1) Sodium 143 (135-145) mmol/L Potassium 3.5 (3.3-5.1) mmol/L Chloride 109 H (96-108) mmol/L Carbon Dioxide 23 (22-29) mmol/L Anion Gap 15 (12-20) BUN 14 (9-16) mg/dL Creatinine 0.70 (0.5-1.4) mg/dL Estim Creat Clear Calc 198.7 Estimated GFR > 60 Random Glucose 155 H (60-115) mg/dL Lactic Acid 2.0 (0.5-2.0) mmol/L Calcium 9.0 (8.4-10.2) mg/dL Total Bilirubin 0.3 (0.0-1.0) mg/dL Independent Interpretation I performed an independent interpretation of an: CT Scan (no abscess) Radiology Impression Discussion of test interpretation with radiology: I have reviewed the radiologist's reading. Prescription Management I considered prescription management with: Antibiotic Discharge Plan Discharge Clinical Impression: Cellulitis of hip, right Patient Disposition: Home, Self-Care Instructions: Cellulitis (ED) Additional Instructions: return for worsening symptoms, fevers, pain, unable to take antibiotics, worsening redness or any other concerns next dose of antibiotic is tonight On a cephalosporin?antibiotic, softer bowel movements are to be expected. Call your provider if you move your bowels more than 4 times a day, your bowel movements are almost all liquid, or you get a rash.?? On doxycycline, do not take pills immediately before going to bed and swallow pills with plenty of water. Avoid direct sunlight, iron, antacids, and Pepto Bismol. Call your provider if you develop new ringing in your ears, new problems hearing, dizziness, difficulty swallowing, rash, abdominal discomfort, nausea, or diarrhea.? Prescriptions: New doxycycline hyclate 100 mg capsule 100 mg PO BID 7 Days Qty: 14 0RF cephalexin 500 mg capsule 500 mg PO QID 7 Days Qty: 28 0RF No Action ketorolac 10 mg tablet 10 mg PO Q6H PRN (Reason: pain) Qty: 20 0RF Rx Instructions: Patient received 30mg IM Ketorolac in the ED. clonazepam 0.5 mg tablet 0.5 mg PO BID PRN (Reason: Anxiety) Zepbound 15 mg/0.5 mL pen injector 15 mg SUBCUT TH zolpidem 12.5 mg tablet,ext release multiphase 12.5 mg PO BEDTIME PRN (Reason: Sleep) Print Language: Citizen Of [place]
[2025-05-12 14:33] LABS: MANUAL DIFF FLAG NO
[2025-05-12 14:34] LABS: Hematocrit 43.7 % (42.0-52.0); Hemoglobin 13.8 g/dl (14.0-18.0); Imm Gran Abs Auto 0.04 X10*3/uL (0.00-0.03); Imm Gran Pct Auto 0.4 % (0.0-0.4); Lymphocytes Absolute Auto 1.8 X10*3/uL (1.2-4.9); Mean Corpuscular HGB Conc 31.6 g/dl (31.0-36.0); Mean Corpuscular Hemoglobin 25.3 pg (27.0-33.0); Mean Corpuscular Volume 80.2 fL (80.0-98.0); NRBC Abs Auto 0.000 X10*3/uL (0.0-0.012); NRBC Pct Auto 0.0 /100WBC (0.0-0.2); Platelet Count 335 X10*3/uL (160-400); Red Blood Count 5.45 X10*6/uL (4.60-5.80); White Blood Count 10.0 X10*3/uL (4.8-10.8)
[2025-05-12] MEDS: SODIUM CHLORIDE 3240 ML IV (14:41)
[2025-05-12 14:44] LABS: INTERNATIONAL NORM RATIO 1.1 (0.9-1.1); Prothrombin Time 12.9 SEC (10.9-12.4)
[2025-05-12] MEDS: vancomycin/NS 2,000 MG/500 ML PLAST..BAG 250 MG IV (14:56)
[2025-05-12 15:01] LABS: Anion Gap 15 (12-20); Blood Urea Nitrogen 14 mg/dL (9-16); Calcium 9.0 mg/dL (8.4-10.2); Carbon Dioxide 23 mmol/L (22-29); Chloride 109 mmol/L (96-108); Creatinine Clr Calc Pharmacy 198.7; Estimated Glomerular Filt Rate > 60; Potassium 3.5 mmol/L (3.3-5.1); Sodium 143 mmol/L (135-145)
[2025-05-12] MEDS: iohexoL 350 MG/ML 100 ML INFUS..BTL IV (15:23)
--- OUTSIDE RECORDS SUMMARY | 2025-05-12 16:03 | XMS_ITS | Encounter Summary ---
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
[2025-05-12] MEDS: Lactated Ringers 1,000 ML 999 ML IV (16:30)
== END 2025-05-12 17:34 | disposition home or self-care (01) ==
PROVIDERS: Emergency Provider Emergency Medicine
DX: L03.115 Cellulitis of right lower limb (principal); R11.2 Nausea with vomiting, unspecified; F17.210 Nicotine dependence, cigarettes, uncomplicated; F12.90 Cannabis use, unspecified, uncomplicated
CPT/HCPCS: 36415; 73701; 80048; 82247; 83605; 85025; 85610; 87040; 96361; 96374; 96375; 99284; 99285; J1885; J2270; J2405; J2543; J3373; J7120; Q9967

== ENCOUNTER → 2025-05-12 15:03 | Outpatient (BNV) | payer OTHER, SELFPAY | PROVIDERS: Emergency Provider Emergency Medicine; Visit Provider Radiology Diagnostic Radiology | DX: M25.551 Pain in right hip (principal); R22.41 Localized swelling, mass and lump, right lower limb | CPT/HCPCS: 73701 ==